=== PATIENT | male | born 1965 | race African-American/Black ===

== ENCOUNTER 2016-10-12 13:33 | Emergency (ER) | payer MEDICAID ==
[~2016-10-12] VITALS: Ht 177.8 cm; Wt 71.7 kg
[~2016-10-12 13:33] MED LIST: ABAC1TAB3 PO; DOLU50TA PO; HYDR-548 PO; MAGN400C PO
[2016-10-12] MEDS ORDERED: KETOROLAC TROMETHAMINE 30 MG INJ IVP ONE (13:45)
[2016-10-12 13:59] LABS: *BILIRUBIN,URIN NEGATIVE (NEGATIVE); *BLOOD, URINE 3+ (NEGATIVE); *CLARITY,URINE SLIGHTLY CLOUDY (CLEAR); *COLOR,URINE AMBER (YELLOW); *KETONES,URINE 1+ (NEGATIVE); *UROBILINOGEN,URINE 0.2 E.U./dl (NORMAL); LEUKOCYTE ESTERASE ,URINE 1+ (NEGATIVE); NITRITE, URINE NEGATIVE (NEGATIVE); UGLUCOSE NEGATIVE (NEGATIVE)
[2016-10-12 14:00] LABS: *PROTEIN,URINE 3+ (NEGATIVE)
[2016-10-12] MEDS ORDERED: HYDROMORPHONE 1 MG/1 ML DISP.SYRIN IV ONE (14:00)
[2016-10-12] MEDS ORDERED: HYDROMORPHONE 1 MG/1 ML DISP.SYRIN ONE (14:03)
[2016-10-12] MEDS ORDERED: KETOROLAC TROMETHAMINE 30 MG INJ ONE (14:03)
--- NOTE | 2016-10-12 14:20 | NUR ---
Patient is resting comfortably on gurney while using his cellphone, NAD, decreased pains expressed.
[2016-10-12 14:25] LABS: BACTERIA,URINE MODERATE /HPF (NONE SEEN); RBC,URINE TNTC /HPF (0-3); SQUAMOUS EPITHELIAL CELL,UR FEW /HPF (NONE SEEN)
[2016-10-12 14:30] LABS: CALCIUM 9.1 mg/dL (8.5-10.1); CREATININE 1.2 mg/dL (0.6-1.3); POTASSIUM 3.5 mmol/L (3.5-5.1)
[2016-10-12] MEDS ORDERED: CEFTRIAXONE 1 G in IV DEXTROSE 5% 50 ML IV ONE (14:45)
[2016-10-12] MEDS ORDERED: HEPARIN SODIUM,PORCINE/PF 100 UNIT/ML, 5ML SYR ONE (14:52)
[2016-10-12] MEDS ORDERED: CEFTRIAXONE 1 G VIAL ONE (14:52)
--- NOTE | 2016-10-12 15:22 | NUR ---
Patient discharged to home in stable conditon. Written and verbal after care instructions given to patient. Patient verbalizes understanding of instructions.
[2016-10-12] MEDS ORDERED: HEPARIN SODIUM,PORCINE/PF 100 UNIT/ML, 5ML SYR XX ONE (15:30)
== END 2016-10-12 15:25 | disposition home or self-care (01) ==
LOC: ER 13:36
DX: N39.0 Urinary tract infection, site not specified (principal); N20.0 Calculus of kidney; F19.10 Other psychoactive substance abuse, uncomplicated; F17.200 Nicotine dependence, unspecified, uncomplicated; Z88.1 Allergy status to other antibiotic agents; Z86.718 Personal history of other venous thrombosis and embolism; Z87.442 Personal history of urinary calculi
CPT/HCPCS: 36415; 80048; 81001; 87086; 96365; 96375; 99284; A4663; J0696; J1170; J1642; J1885

== ENCOUNTER 2016-11-19 04:29 | Emergency (ER) | payer MEDICAID, OTHER ==
[~2016-11-19] VITALS: Ht 177.8 cm; Wt 70.3 kg
[~2016-11-19 04:29] MED LIST changes: -MAGN400C PO
[2016-11-19] MEDS ORDERED: ONDANSETRON 4 MG/2 ML VIAL IV ONE (05:00)
[2016-11-19] MEDS ORDERED: IV NORMAL SALINE 1000 ML BAG IV ONE (05:00)
[2016-11-19] MEDS ORDERED: LORAZEPAM 2 MG/1 ML VIAL IV ONE (05:00)
--- NOTE | 2016-11-19 05:15 | NUR ---
PT HAS A PORT A CATH IN RT SUBCLAVIAN , ACCESSED ASEPTICALLY WITH 19G BOWERS NEEDLE.BLOOD DRAWN FOR THE LAB, MEDS GIVEN ORDERED.
[2016-11-19] MEDS ORDERED: LORAZEPAM 2 MG/1 ML VIAL ONE (05:24)
[2016-11-19] MEDS ORDERED: ONDANSETRON 4 MG/2 ML VIAL ONE (05:24)
[2016-11-19 05:29] LABS: BASOPHILS % (AUTO) 0.2 % (0.0-2.0); EOSINOPHILS # (AUTO) 0.1 K/uL (0.0-0.7); EOSINOPHILS % (AUTO) 1.1 % (0.0-7.0); HEMATOCRIT 41.6 % (36.7-47.1); HEMOGLOBIN 13.8 g/dL (12.5-16.3); LYMPHOCYTES # (AUTO) 0.7 K/uL (20.0-40.0); LYMPHOCYTES % (AUTO) 9.8 % (20.5-51.5); MEAN CORPUSCULAR HEMOGLOBIN 29.8 uug (23.8-33.4); MEAN CORPUSCULAR HGB CONC 33 g/dL (32.5-36.3); MEAN CORPUSCULAR VOLUME 89.8 fL (73.0-96.2); MONOCYTES # (AUTO) 0.5 K/uL (2.0-10.0); MONOCYTES % (AUTO) 7.5 % (0.0-11.0); NEUTROPHILS # (AUTO) 5.4 K/uL (1.8-8.9); NEUTROPHILS % (AUTO) 81.4 % (38.5-71.5); PLATELET COUNT (AUTO) 137 K/uL (152-348); RED BLOOD CELL COUNT(AUTO) 4.63 MIL/uL (4.06-5.63); RED CELL DISTRIBUTION WIDTH 15.8 % (12.1-16.2); WHITE BLOOD COUNT (AUTO) 6.7 K/uL (3.6-10.2)
[2016-11-19 05:31] LABS: ETHANOL < 3 MG/DL (0-0)
[2016-11-19 05:35] LABS: ALBUMIN 3.9 g/dL (3.4-5.0); BILIRUBIN,DIRECT 0.1 mg/dL (0.0-0.2); BILIRUBIN,TOTAL 0.5 mg/dL (0.2-1.0); CREATININE 1.1 mg/dL (0.6-1.3); POTASSIUM 3.5 mmol/L (3.5-5.1); TOTAL PROTEIN, SERUM 7.9 g/dL (6.4-8.2)
--- NOTE | 2016-11-19 07:26 | NUR ---
Patient is resting comfortably in bed with eyes closed, nad noted.
--- NOTE | 2016-11-19 07:40 | NUR ---
port a cath access removed per md order.
[2016-11-19 07:41] VITALS: BP 115/88
--- NOTE | 2016-11-19 07:42 | NUR ---
Patient discharged to home in stable conditon. Written and verbal after care instructions given. Patient verbalizes understanding of instructions.
[2016-11-23] MEDS ORDERED: Docusate Sodium PO (12:23)
[2016-11-23] MEDS ORDERED: PROM25TA15 PO (12:23)
[2016-11-23] MEDS ORDERED: AMPI500C11 PO (12:23)
== END 2016-11-19 07:44 | disposition home or self-care (01) ==
LOC: ER 04:33
DX: F41.9 Anxiety disorder, unspecified (principal); R10.13 Epigastric pain; R11.10 Vomiting, unspecified
CPT/HCPCS: 36415; 71010; 74176; 80048; 80076; 83690; 85025; 93005; 96361; 96374; 96375; 99285; A4663; G0482; J2060; J2405; J7030; G6040-TC

== ENCOUNTER 2016-11-21 11:26 | Inpatient (IN) | payer OTHER ==
[~2016-11-21] VITALS: Ht 177.8 cm; Wt 70.3 kg
--- NOTE | 2016-11-21 12:02 | NUR ---
right chest PORT catheter was accessed aseptically. Blood and urine sent to lab, pending CT, endorsed to MATTHEW Willis accordingly.
[2016-11-21 12:05] LABS: BASOPHILS % (AUTO) 0.6 % (0.0-2.0); EOSINOPHILS % (AUTO) 0.4 % (0.0-7.0); HEMATOCRIT 39.5 % (40-50); HEMOGLOBIN 13.1 G/DL (14.0-18.0); LYMPHOCYTES # (AUTO) 1.3 K/uL (20.0-40.0); LYMPHOCYTES % (AUTO) 23.7 % (20.5-51.5); MEAN CORPUSCULAR HGB CONC 33 g/dL (32.0-37.0); MEAN CORPUSCULAR VOLUME 90.7 FL (82.0-92.0); MONOCYTES # (AUTO) 0.5 K/uL (2.0-10.0); MONOCYTES % (AUTO) 8.8 % (0.0-11.0); NEUTROPHILS # (AUTO) 3.8 K/uL (1.8-8.9); NEUTROPHILS % (AUTO) 66.5 % (38.5-71.5); PLATELET COUNT (AUTO) 129 K/UL (150-450); RED BLOOD CELL COUNT(AUTO) 4.36 MIL/UL (4.7-6.1); WHITE BLOOD COUNT (AUTO) 5.6 K/UL (4.0-11.2)
[2016-11-21 12:06] LABS: *BILIRUBIN,URIN NEGATIVE (NEGATIVE); *BLOOD, URINE 3+ (NEGATIVE); *CLARITY,URINE SLIGHTLY CLOUDY (CLEAR); *COLOR,URINE YELLOW (YELLOW); *KETONES,URINE 1+ (NEGATIVE); *PROTEIN,URINE 2+ (NEGATIVE); *UROBILINOGEN,URINE 0.2 E.U./dl (NORMAL); LEUKOCYTE ESTERASE ,URINE 1+ (NEGATIVE); PH,URINE 8.5 (5.0-8.0); UGLUCOSE NEGATIVE (NEGATIVE)
[2016-11-21 12:10] LABS: NITRITE, URINE POSITIVE (NEGATIVE)
[2016-11-21 12:10] LABS: CALCIUM 8.9 mg/dL (8.5-10.1); CREATININE 1.2 mg/dL (0.6-1.3); POTASSIUM 3.5 mmol/L (3.5-5.1)
[2016-11-21 12:16] LABS: ALBUMIN 3.8 g/dL (3.4-5.0); BILIRUBIN,DIRECT 0.1 mg/dL (0.0-0.2); BILIRUBIN,TOTAL 0.6 mg/dL (0.2-1.0); TOTAL PROTEIN, SERUM 7.7 g/dL (6.4-8.2)
[2016-11-21 12:24] LABS: RBC,URINE 80-100 /HPF (0-3)
[2016-11-21 12:25] LABS: BACTERIA,URINE FEW /HPF (NONE SEEN); SQUAMOUS EPITHELIAL CELL,UR FEW /HPF (NONE SEEN)
--- NOTE | 2016-11-21 13:19 | NUR ---
Right now, patient is resting comfortably on gurney while watching TV with occassional soft moaning heard from the patient 2/2 to MD jakob notified.
[2016-11-21] MEDS ORDERED: HYDROMORPHONE 1 MG/1 ML DISP.SYRIN IV ONE ×2 (13:30→19:15)
[2016-11-21] MEDS ORDERED: LEVOFLOXACIN 750MG/D5W 150 ML IV ONE ×2 (13:30→13:44)
[2016-11-21] MEDS ORDERED: ONDANSETRON 4 MG/2 ML VIAL IV ONE ×2 (13:30→20:45)
[2016-11-21] MEDS ORDERED: ONDANSETRON 4 MG/2 ML VIAL ONE (13:44)
[2016-11-21] MEDS ORDERED: HYDROMORPHONE 1 MG/1 ML DISP.SYRIN ONE ×2 (13:44→19:25)
--- NOTE | 2016-11-21 15:31 | NUR ---
Patient is still waiting for admission approval from [facility] insurance.
--- NOTE | 2016-11-21 16:03 | NUR ---
Summary report & facesheet were faxed by ER registration staffryne Garcia per instructions by ANNA miller [place] insurance.
--- NOTE | 2016-11-21 18:45 | NUR ---
Patient is eating vegetarian dinner tray with good appetite, still for transfer to a [facility] hospital at this time, no acute change in condition seen.
--- NOTE | 2016-11-21 19:27 | NUR ---
assumed care of patient from am shift GEETA Wang, patient is awake , alert, oriented x 4. All patient needs attended, pending transfer center call back for location of patient transfer facility.
--- NOTE | 2016-11-21 19:47 | NUR ---
Contacted [facility], Per Facility maintenance and custodian supervisor, patient has been accepted to the facility. Pending bed availability, awaiting call back from [facility] for room assignment.
--- NOTE | 2016-11-21 20:56 | NUR ---
Follow up call placed to [facility], No bed available at this moment for the patient.
--- NOTE | 2016-11-21 21:04 | NUR ---
Spoke with Miracle, Director Of Investigations. Patient approved for admission to [facility] due to inability to obtain bed at [facility]. Dr Nguyen aware, call placed to [facility] for Panel Call
--- NOTE | 2016-11-21 22:00 | NUR ---
RECEIVED PATIENT VIA W/C FROM ER. PATIENT IS A/O X4. DENIES PAIN UPON ARIVAL TO FLOOR. NO RESP. DISTRESS NOTED. VSS. JIAN-CATH NOTED TO RIGHT UPPER CHEST WALL, INTACT. ORIENTED PATIENT TO ROOM AND CALL LIGHT. CALL LIGHT IN REACH. ALL NEEDS ATTENDED. WILL CONTINUE TO MONITOR.
--- NOTE | 2016-11-21 22:06 | NUR ---
Pt. admitted to Med Surg , under care of Dr. Mcdonald. Dx: Infected left Kidney Stone w/ Hydronephrosis . Belongs List completed
[2016-11-21] MEDS ORDERED: ACETAMINOPHEN 325 MG TABLET PO PRN (22:15)
[2016-11-21] MEDS ORDERED: MAGNESIUM HYDROXIDE 30 ML LIQUID UDC PO PRN (22:15)
[2016-11-21] MEDS ORDERED: ZOLPIDEM 5 MG TABLET PO PRN (22:15)
[2016-11-21 22:16] VITALS: BP 146/89
[2016-11-21] MEDS: TAMSULOSIN HCL 0.4 MG CAP.SR.24H PO SCH (23:01)
[2016-11-21] MEDS: POTASSIUM CHLORIDE 20 MEQ in IV 1/2NS 1000 ML 1,000 ML IV PRN (23:01)
[2016-11-21] MEDS ORDERED: TAMSULOSIN HCL 0.4 MG CAP.SR.24H ONE (23:10)
[2016-11-22] MEDS ORDERED: HYDROMORPHONE 2 MG/1 ML DISP.SYRIN ONE (00:09)
[2016-11-22] MEDS: ONDANSETRON 4 MG/2 ML VIAL IV PRN ×3 (01:31→14:43)
[2016-11-22] MEDS ORDERED: ONDANSETRON 4 MG/2 ML VIAL ONE (01:33)
[2016-11-22] MEDS ORDERED: AMPICILLIN 1 G VIAL ONE (02:06)
[2016-11-22 06:00] VITALS: BP 114/84
[2016-11-22] MEDS: AMPICILLIN IV 1 G in IV NORMAL SALINE 50 ML IV SCH ×2 (06:05→14:42)
--- NOTE | 2016-11-22 06:23 | NUR ---
PATIENT AWAKE IN BED. IVF INFUSING WELL TO RIGHT UPPER CHEST JIAN-CATH. VSS. DENIES PAIN OR DISCOMFORT. NO RESP. DISTRESS NOTED. CALL LIGHT IN REACH. ALL NEEDS ATTENDED. WILL CONTINUE TO MONITOR.
[2016-11-22 06:53] LABS: BASOPHILS % (AUTO) 0.3 % (0.0-2.0); EOSINOPHILS % (AUTO) 0.8 % (0.0-7.0); HEMATOCRIT 38.2 % (40-50); HEMOGLOBIN 13.1 G/DL (14.0-18.0); LYMPHOCYTES % (AUTO) 26.4 % (20.5-51.5); MEAN CORPUSCULAR HEMOGLOBIN 30.8 UUG (27.0-31.0); MEAN CORPUSCULAR HGB CONC 34 g/dL (32.0-37.0); MEAN CORPUSCULAR VOLUME 90.3 FL (82.0-92.0); MONOCYTES # (AUTO) 0.5 K/uL (2.0-10.0); MONOCYTES % (AUTO) 11.7 % (0.0-11.0); NEUTROPHILS # (AUTO) 2.4 K/uL (1.8-8.9); NEUTROPHILS % (AUTO) 60.8 % (38.5-71.5); PLATELET COUNT (AUTO) 133 K/UL (150-450); RED BLOOD CELL COUNT(AUTO) 4.23 MIL/UL (4.7-6.1); RED CELL DISTRIBUTION WIDTH 15.4 % (11.5-14.5)
[2016-11-22 07:04] LABS: WHITE BLOOD COUNT (AUTO) 3.9 K/UL (4.0-11.2)
[2016-11-22 07:06] LABS: ALBUMIN 3.6 g/dL (3.4-5.0); BILIRUBIN,TOTAL 0.6 mg/dL (0.2-1.0); CALCIUM 8.5 mg/dL (8.5-10.1); CREATININE 1.1 mg/dL (0.6-1.3); MAGNESIUM 1.4 mg/dL (1.8-2.4); PHOSPHOROUS 3.8 mg/dL (2.5-4.9); POTASSIUM 3.6 mmol/L (3.5-5.1); TOTAL PROTEIN, SERUM 7.4 g/dL (6.4-8.2)
--- NOTE | 2016-11-22 07:30 | NUR ---
PT IS SLEEPING IN BED COMFORTABLY. NO S/S OF RESPIRATORY DISTRESS NOTED. PAIN IS REPORTED, WILL MEDICATE APPROPRIATELY. PORTACATH IS INTACT/PATENT. ALL SAFETY NEEDS ARE MET. WILL CONTINUE TO MONITOR.
[2016-11-22] MEDS: PANTOPRAZOLE SODIUM 40 MG TABLET.DR PO SCH (08:13)
[2016-11-22] MEDS: TAMSULOSIN HCL 0.4 MG CAP.SR.24H PO SCH ×2 (08:13→20:44)
[2016-11-22] MEDS: HYDROMORPHONE 1 MG/1 ML DISP.SYRIN IV PRN ×3 (08:13→18:14)
[2016-11-22] MEDS ORDERED: Medication Not On Formulary EA (Dolutegravir Sodium (Tivicay) 50 MG) PO SCH (09:00)
[2016-11-22] MEDS: ALPRAZOLAM 0.5 MG TABLET PO PRN ×2 (09:23→19:45)
[2016-11-22 11:07] VITALS: BP 134/86
[2016-11-22] MEDS ORDERED: VANCOMYCIN IV 1 G in PREMIXED 0 EACH IV SCH (11:15)
--- NOTE | 2016-11-22 11:20 | NUR ---
PHARMACY CLINICAL NOTES ( VANCOMYCIN DOSING) S: 50 YO male with diagnosis of infected left kindey stone, UTI, hydronephrosis on vanco and ampicillin O: bun/scr 9/1.1 , wbc 3.6, temp 98.4 A/P: will dose vanco as 1gm ivbp q12h , predicted peak 35 and trough 16 will ck the trough prior to 4th dose and re-adjust if necessary. will continue to monitor.
[2016-11-22] MEDS: POTASSIUM CHLORIDE 20 MEQ in IV 1/2NS 1000 ML 1,000 ML IV PRN (11:53)
[2016-11-22] MEDS ORDERED: ABAC1TAB3 PO (12:02)
[2016-11-22] MEDS ORDERED: PROMETHAZINE HCL INJ 12.5 MG in IV DEXTROSE 5% 50 ML IV PRN (12:15)
--- NOTE | 2016-11-22 12:16 | NUR ---
PHENERGAN 12.[address] PRN PER [address]. BOLES
[2016-11-22] MEDS: PATIENT MAY USE OWN MED- MD OK PO SCH ×2 (13:24)
[2016-11-22] MEDS: MAGNESIUM SULFATE/D5W 100 ML IV SCH ×4 (14:42→18:14)
[2016-11-22 15:21] VITALS: BP 112/78
--- NOTE | 2016-11-22 19:27 | NUR ---
NO CHANGES NOTED. ALL SAFETY NEEDS ARE MET.
--- NOTE | 2016-11-22 19:45 | NUR ---
RECEIVED PATIENT AWAKE IN BED. PATIENT IS VERY ANXIOUS AND APPEARS TO BE HAVING AN "ANXIETY ATTACK." PATIENT GIVEN XANAX 0.5MG PO PRN ORDERED. PATIENT EDUCATED ON SLOW DEEP BREATHING AND RELAXATION TECHNIQUES. NO RESP. DISTRESS NOTED. NO C/O PAIN OR DISCOMFORT AT THIS TIME. JIAN-CATH NOTED TO RIGHT UPPER CHEST. VSS. CALL LIGHT IN REACH. ALL NEEDS ATTENDED. WILL CONTINUE TO MONITOR.
[2016-11-22 20:00] VITALS: BP 122/82
--- NOTE | 2016-11-22 20:00 | NUR ---
PATIENT IN BED, VOMITING. CALLED OUT TO DR. BOLES FOR FURTHER ORDERS. WILL CONTINUE TO MONITOR.
--- NOTE | 2016-11-22 20:25 | NUR ---
RECEIVED ORDER FOR XANAX TO BE DISCONTINUED AND NEW ORDER FOR PATIENT TO GET ATIVAN. ATIVAN 1MG IV PRN PER RN. WILL CONTINUE TO MONITOR.
[2016-11-22] MEDS: LORAZEPAM 2 MG/1 ML VIAL IV PRN (20:26)
[2016-11-22] MEDS ORDERED: LORAZEPAM 2 MG/1 ML VIAL ONE (20:31)
[2016-11-22] MEDS ORDERED: DOCUSATE SODIUM 250 MG CAPSULE PO SCH (21:00)
[2016-11-22] MEDS ORDERED: DOCUSATE SODIUM 100 MG CAPSULE PO SCH (21:00)
[2016-11-22] MEDS: PIPERACILLIN/TAZOBACTAM/D5W 3.375 G in PREMIXED 1 EACH IV SCH (21:39)
[2016-11-23] MEDS: ONDANSETRON 4 MG/2 ML VIAL IV PRN ×2 (00:25→08:23)
[2016-11-23] MEDS: HYDROMORPHONE 1 MG/1 ML DISP.SYRIN IV PRN ×2 (00:25→04:39)
[2016-11-23 05:30] VITALS: BP 115/82
[2016-11-23] MEDS: PIPERACILLIN/TAZOBACTAM/D5W 3.375 G in PREMIXED 1 EACH IV SCH ×2 (05:30→14:00)
[2016-11-23] MEDS: POTASSIUM CHLORIDE 20 MEQ in IV 1/2NS 1000 ML 1,000 ML IV PRN (05:30)
--- NOTE | 2016-11-23 06:15 | NUR ---
PATIENT AWAKE IN BED. VOMITING AND VERY ANXIOUS. ZOFRAN NOT DUE AT THIS TIME. PATIENT GIVEN ATIVAN 1MG IV PER RN. WILL CONTINUE TO MONITOR. VSS. ALL NEEDS ATTENDED.
[2016-11-23] MEDS: LORAZEPAM 2 MG/1 ML VIAL IV PRN ×2 (06:17→12:44)
[2016-11-23] MEDS ORDERED: LORAZEPAM 2 MG/1 ML VIAL ONE (06:18)
--- NOTE | 2016-11-23 06:32 | NUR ---
PATIENT ASLEEP IN BED. ATIVAN EFFECTIVE. UNABLE TO GIVE PROTONIX PO AT THIS TIME. PATIENT WAS VERY NAUSEA AND VOMITING PRIOR TO RECEIVING ATIVAN IV. WILL ENDORSE TO AM SHIFT. ALL NEEDS ATTENDED. WILL CONTINUE TO MONITOR.
[2016-11-23] MEDS: PANTOPRAZOLE SODIUM 40 MG TABLET.DR PO SCH (06:37)
[2016-11-23 07:10] LABS: BASOPHILS % (AUTO) 0.1 % (0.0-2.0); EOSINOPHILS # (AUTO) 0.1 K/uL (0.0-0.7); EOSINOPHILS % (AUTO) 1.7 % (0.0-7.0); HEMOGLOBIN 12.9 G/DL (14.0-18.0); LYMPHOCYTES # (AUTO) 1.2 K/uL (20.0-40.0); LYMPHOCYTES % (AUTO) 29.6 % (20.5-51.5); MEAN CORPUSCULAR HEMOGLOBIN 31.4 UUG (27.0-31.0); MEAN CORPUSCULAR HGB CONC 34 g/dL (32.0-37.0); MONOCYTES # (AUTO) 0.6 K/uL (2.0-10.0); MONOCYTES % (AUTO) 13.6 % (0.0-11.0); NEUTROPHILS # (AUTO) 2.2 K/uL (1.8-8.9); PLATELET COUNT (AUTO) 128 K/UL (150-450); RED BLOOD CELL COUNT(AUTO) 4.12 MIL/UL (4.7-6.1); RED CELL DISTRIBUTION WIDTH 14.8 % (11.5-14.5); WHITE BLOOD COUNT (AUTO) 4.1 K/UL (4.0-11.2)
[2016-11-23 07:44] LABS: CALCIUM 8.4 mg/dL (8.5-10.1); CREATININE 1.3 mg/dL (0.6-1.3); MAGNESIUM 2.1 mg/dL (1.8-2.4); PHOSPHOROUS 4.2 mg/dL (2.5-4.9); POTASSIUM 3.6 mmol/L (3.5-5.1)
--- NOTE | 2016-11-23 07:49 | NUR ---
NO CHANGES NOTED. PT IS SLEEPING IN BED COMFORTABLY. ALL SAFETY NEEDS ARE MET.
[2016-11-23] MEDS: TAMSULOSIN HCL 0.4 MG CAP.SR.24H PO SCH (09:13)
[2016-11-23] MEDS: PATIENT MAY USE OWN MED- MD OK PO SCH ×2 (09:13)
[2016-11-23] MEDS ORDERED: PROCHLORPERAZINE EDISYLATE 10 MG/2 ML VIAL IV PRN (09:15)
[2016-11-23 11:57] VITALS: BP 111/71
[2016-11-23] MEDS ORDERED: AMPI500C11 PO (12:23)
[2016-11-23] MEDS ORDERED: Docusate Sodium PO (12:23)
[2016-11-23] MEDS ORDERED: PROM25TA15 PO (12:23)
--- NOTE | 2016-11-23 13:20 | NUR ---
DISCHARGE NOTE: NO S/S OF RESPIRATORY DISTRESS NOTED. NO PAIN REPORTED. NO DIZZINESS/NAUSEA REPORTED. OUTSIDE CATHETER IS REMOVED FROM PORTACATH. WRISTBAND IS REMOVED. PHARMACIST IS NOTIFIED THAT THE PT IS LEAVING WITH NEW PRESCRIPTIONS. EDUCTION/EXITCARE IS PROVIDED TO THE PT. PRESCRIPTION IS PROVIDED TO THE PT. PT LEFT WITH HIS FRIEND Shin/S AIDA.
== END 2016-11-23 13:30 | disposition home or self-care (01) | DRG 690 ==
LOC: ER 11:31 → MED 21:53
PROVIDERS: ADMIT Internal Medicine; ATTEND Internal Medicine
DX: N13.6 Pyonephrosis (principal); N20.2 Calculus of kidney with calculus of ureter; D63.0 Anemia in neoplastic disease; F12.90 Cannabis use, unspecified, uncomplicated; G89.3 Neoplasm related pain (acute) (chronic); F41.9 Anxiety disorder, unspecified; Z87.440 Personal history of urinary (tract) infections; Z86.718 Personal history of other venous thrombosis and embolism; Z79.899 Other long term (current) drug therapy; Z92.21 Personal history of antineoplastic chemotherapy; Z87.442 Personal history of urinary calculi; Z87.11 Personal history of peptic ulcer disease; Z85.79 Personal history of other malignant neoplasms of lymphoid, hematopoietic and related tissues; B95.7 Other staphylococcus as the cause of diseases classified elsewhere
CPT/HCPCS: 36415; 83605; 83690; 83735; 84100; 85025; 87040; 87077; 87086; J0290; J1170; J1956; J2060; J2405; J2543; J2550; J3370; J3475; J3480; J3490; J7060

== ENCOUNTER 2016-12-03 06:09 | Emergency (ER) | payer OTHER ==
[~2016-12-03] VITALS: Ht 177.8 cm; Wt 70.3 kg
[~2016-12-03 06:09] MED LIST changes: +AMPI500C11 PO; +Docusate Sodium PO; +PROM25TA15 PO
[2016-12-03] MEDS ORDERED: CLONAZEPAM 0.5 MG TABLET PO ONE (07:15)
[2016-12-03] MEDS ORDERED: PANTOPRAZOLE SODIUM 40 MG TABLET.DR PO ONE ×2 (07:15→07:24)
[2016-12-03] MEDS ORDERED: ONDANSETRON ODT 4 MG TAB.RAPDIS SL ONE (07:15)
--- NOTE | 2016-12-03 07:20 | NUR ---
pt is in room #2b. dr Gray evaluated the pt.
[2016-12-03] MEDS ORDERED: CLONAZEPAM 0.5 MG TABLET ONE (07:25)
[2016-12-03] MEDS ORDERED: ONDANSETRON ODT 4 MG TAB.RAPDIS ONE (07:25)
[2016-12-03 07:31] LABS: BASOPHILS % (AUTO) 0.2 % (0.0-2.0); EOSINOPHILS % (AUTO) 0.5 % (0.0-7.0); HEMATOCRIT 39.1 % (40-50); HEMOGLOBIN 13.4 G/DL (14.0-18.0); LYMPHOCYTES # (AUTO) 0.8 K/UL (0.8-4.8); LYMPHOCYTES % (AUTO) 16.7 % (20.5-51.5); MEAN CORPUSCULAR HEMOGLOBIN 30.8 UUG (27.0-31.0); MEAN CORPUSCULAR HGB CONC 34 g/dL (32.0-37.0); MEAN CORPUSCULAR VOLUME 89.6 FL (82.0-92.0); MONOCYTES # (AUTO) 0.4 K/UL (0.1-1.30); MONOCYTES % (AUTO) 8.2 % (0.0-11.0); NEUTROPHILS # (AUTO) 3.7 K/UL (1.8-8.9); NEUTROPHILS % (AUTO) 74.4 % (38.5-71.5); PLATELET COUNT (AUTO) 166 K/UL (150-450); RED BLOOD CELL COUNT(AUTO) 4.37 MIL/UL (4.7-6.1); RED CELL DISTRIBUTION WIDTH 15.6 % (11.5-14.5); WHITE BLOOD COUNT (AUTO) 4.9 K/UL (4.0-11.2)
[2016-12-03 07:39] LABS: CALCIUM 8.9 mg/dL (8.5-10.1); CREATININE 1.1 mg/dL (0.6-1.3); POTASSIUM 3.8 mmol/L (3.5-5.1)
--- NOTE | 2016-12-03 08:09 | NUR ---
pt as d/c to home.. d/c instructions given to the pt.
[2016-12-03 08:10] VITALS: BP 136/78
== END 2016-12-03 08:11 | disposition home or self-care (01) ==
LOC: ER 06:18
DX: F41.9 Anxiety disorder, unspecified (principal); R11.2 Nausea with vomiting, unspecified; F12.10 Cannabis abuse, uncomplicated; F17.200 Nicotine dependence, unspecified, uncomplicated; Z88.8 Allergy status to other drugs, medicaments and biological substances
CPT/HCPCS: 36415; 70030-TC; 85025; 93005; A4663; J7030; Q0162

== ENCOUNTER 2017-04-23 02:23 | Emergency (ER) | payer OTHER ==
[~2017-04-23] VITALS: Ht 177.8 cm; Wt 72.6 kg
[2017-04-23 02:56] LABS: BASOPHILS # (AUTO) 0.1 K/uL (0.0-8.0); BASOPHILS % (AUTO) 1.1 % (0.0-2.0); EOSINOPHILS # (AUTO) 0.2 K/uL (0.0-0.7); EOSINOPHILS % (AUTO) 2.3 % (0.0-7.0); HEMATOCRIT 44.7 % (40-50); HEMOGLOBIN 15.2 G/DL (14.0-18.0); LYMPHOCYTES # (AUTO) 1.7 K/UL (0.8-4.8); MEAN CORPUSCULAR HEMOGLOBIN 30.4 UUG (27.0-31.0); MEAN CORPUSCULAR HGB CONC 34 g/dL (32.0-37.0); MEAN CORPUSCULAR VOLUME 89.3 FL (82.0-92.0); MONOCYTES # (AUTO) 0.5 K/UL (0.1-1.30); MONOCYTES % (AUTO) 7.6 % (0.0-11.0); NEUTROPHILS # (AUTO) 4.1 K/UL (1.8-8.9); PLATELET COUNT (AUTO) 141 K/UL (150-450); RED BLOOD CELL COUNT(AUTO) 5.01 MIL/UL (4.7-6.1); WHITE BLOOD COUNT (AUTO) 6.6 K/UL (4.0-11.2)
--- NOTE | 2017-04-23 02:57 | NUR ---
Pt ambulated to room with steady gait and changed into gown. Pt c/o severe right flank pain radiating into right side of abd with N/V since yesterday. Pt seen by Dr. Nuñez. IV established, labs drawn and sent, ua collected and sent. Pt medicated for pain and vomiting. Will monitor for effects of medications. Fluid bolus infusing freely to gravity. Pt resting in position of comfort for self.
[2017-04-23 02:59] LABS: *BILIRUBIN,URIN NEGATIVE (NEGATIVE); *BLOOD, URINE 3+ (NEGATIVE); *CLARITY,URINE CLOUDY (CLEAR); *COLOR,URINE YELLOW (YELLOW); *KETONES,URINE NEGATIVE (NEGATIVE); *PROTEIN,URINE 2+ (NEGATIVE); *UROBILINOGEN,URINE 0.2 E.U./dl (NORMAL); LEUKOCYTE ESTERASE ,URINE 1+ (NEGATIVE); NITRITE, URINE POSITIVE (NEGATIVE); UGLUCOSE NEGATIVE (NEGATIVE)
[2017-04-23 03:01] LABS: CREATININE 1.3 mg/dL (0.6-1.3); POTASSIUM 3.5 mmol/L (3.5-5.1)
[2017-04-23 03:06] LABS: BILIRUBIN,DIRECT 0.1 mg/dL (0.0-0.2); BILIRUBIN,TOTAL 0.4 mg/dL (0.2-1.0); TOTAL PROTEIN, SERUM 8.8 g/dL (6.4-8.2)
--- NOTE | 2017-04-23 03:14 | NUR ---
pt to radiology via tania
[2017-04-23 03:18] LABS: BACTERIA,URINE MODERATE /HPF (NONE SEEN); RBC,URINE 80-100 /HPF (0-3); SQUAMOUS EPITHELIAL CELL,UR FEW /HPF (NONE SEEN)
--- NOTE | 2017-04-23 03:40 | NUR ---
Pt returned from radiology via gurney. Pt sts pain improved with medication. Pt no longer vomiting. Pt repositioned for comfort.
--- NOTE | 2017-04-23 04:32 | NUR ---
Pt c/o pain increasing. Dr. Nuñez notified and verbal order for toradol 30mg IVP given. Pt medicated, will monitor for effects of medication.
--- NOTE | 2017-04-23 05:44 | NUR ---
Pt sts he is pain free from the previous medication. Pt resting in position of comfort for self, no complaints at this time.
--- NOTE | 2017-04-23 06:54 | NUR ---
Pt stable for discharge per Dr. Nuñez. IV dc'd, catheter intact, drsg applied. No problems noted to site. Pt given ACI. Pt verbalized understanding of dc instructions. Pt ambulated out of ER with a steady gait and ride home.
[2017-04-23 07:14] VITALS: BP 112/84
== END 2017-04-23 06:58 | disposition home or self-care (01) ==
LOC: ER 02:26
DX: N20.0 Calculus of kidney (principal); Z87.442 Personal history of urinary calculi; D64.9 Anemia, unspecified; F17.200 Nicotine dependence, unspecified, uncomplicated; Z86.718 Personal history of other venous thrombosis and embolism; K59.00 Constipation, unspecified
CPT/HCPCS: 36415; 70030-TC; 71010; 83690; 85025; 85730; 93005; A4663; J1170; J1885; J2405

== ENCOUNTER 2017-04-24 07:42 | Emergency (ER) | payer OTHER ==
[~2017-04-24] VITALS: Ht 177.8 cm; Wt 72.6 kg
--- NOTE | 2017-04-24 07:46 | NUR ---
As soon as patient came to ER bed 5A, patient immediately groans and moans loudly, retching but no actual vomiting seen, skin warm and dry, respiration:easy
--- NOTE | 2017-04-24 07:56 | NUR ---
Dr Morales is at bedside evaluating patient, pending MD orders
--- NOTE | 2017-04-24 08:06 | NUR ---
Patient is seen talking on his cellphone, calm, no retching seen, comfort and safety measures maintained
--- NOTE | 2017-04-24 09:04 | NUR ---
Patient is resting comfortably in bed with eyes open, NAD. No vomiting seen or retching noted since 0837
--- NOTE | 2017-04-24 09:33 | NUR ---
Patient says that he is using "uber" for a ride. Patient discharged to home in stable conditon. Written and verbal after care instructions given to patient. Patient verbalizes understanding of instructions. Patient also said that his pains have remarkedly decreased after the dilaudid shots.
== END 2017-04-24 09:42 | disposition home or self-care (01) ==
LOC: ER 07:42
DX: N20.0 Calculus of kidney (principal); F17.200 Nicotine dependence, unspecified, uncomplicated
CPT/HCPCS: A4663; J1170; J2405

== ENCOUNTER 2017-04-26 08:58 | Emergency (ER) | payer OTHER ==
[~2017-04-26] VITALS: Ht 177.8 cm; Wt 72.6 kg
[2017-04-26 09:47] LABS: *BILIRUBIN,URIN NEGATIVE (NEGATIVE); *BLOOD, URINE 3+ (NEGATIVE); *CLARITY,URINE TURBID (CLEAR); *COLOR,URINE DARK YELLOW (YELLOW); *KETONES,URINE NEGATIVE (NEGATIVE); *PROTEIN,URINE 2+ (NEGATIVE); *UROBILINOGEN,URINE 0.2 E.U./dl (NORMAL); LEUKOCYTE ESTERASE ,URINE 1+ (NEGATIVE); NITRITE, URINE POSITIVE (NEGATIVE); UGLUCOSE NEGATIVE (NEGATIVE)
--- NOTE | 2017-04-26 09:54 | NUR ---
PT CO ANXIETY ATTCK. NOTIFIED
[2017-04-26 09:57] LABS: BASOPHILS % (AUTO) 0.4 % (0.0-2.0); EOSINOPHILS # (AUTO) 0.1 K/uL (0.0-0.7); EOSINOPHILS % (AUTO) 1.4 % (0.0-7.0); HEMATOCRIT 36.4 % (40-50); HEMOGLOBIN 12.1 G/DL (14.0-18.0); LYMPHOCYTES # (AUTO) 0.6 K/UL (0.8-4.8); LYMPHOCYTES % (AUTO) 10.2 % (20.5-51.5); MEAN CORPUSCULAR HEMOGLOBIN 29.8 UUG (27.0-31.0); MEAN CORPUSCULAR HGB CONC 33 g/dL (32.0-37.0); MEAN CORPUSCULAR VOLUME 89.9 FL (82.0-92.0); MONOCYTES # (AUTO) 0.7 K/UL (0.1-1.30); MONOCYTES % (AUTO) 10.7 % (0.0-11.0); NEUTROPHILS # (AUTO) 4.9 K/UL (1.8-8.9); NEUTROPHILS % (AUTO) 77.3 % (38.5-71.5); PLATELET COUNT (AUTO) 139 K/UL (150-450); RED BLOOD CELL COUNT(AUTO) 4.04 MIL/UL (4.7-6.1); WHITE BLOOD COUNT (AUTO) 6.3 K/UL (4.0-11.2)
[2017-04-26 10:09] LABS: RBC,URINE TNTC /HPF (0-3); WBC,URINE 80-100 /HPF (0-3)
[2017-04-26 10:10] LABS: BACTERIA,URINE FEW /HPF (NONE SEEN); SQUAMOUS EPITHELIAL CELL,UR FEW /HPF (NONE SEEN)
[2017-04-26] MEDS ORDERED: EMTR1TAB14 PO (10:23)
--- NOTE | 2017-04-26 10:35 | NUR ---
DR. SCHAFFER TALKING TO DAVID JACKSON
[2017-04-26 10:46] LABS: BILIRUBIN,DIRECT 0.2 mg/dL (0.0-0.2); BILIRUBIN,TOTAL 0.6 mg/dL (0.2-1.0); CREATININE 1.4 mg/dL (0.6-1.3); TOTAL PROTEIN, SERUM 7.5 g/dL (6.4-8.2)
[2017-04-26 10:50] LABS: POTASSIUM 3.6 mmol/L (3.5-5.1)
[2017-04-26 13:31] LABS: EOSINOPHILS % (MANUAL) 2 % (0-8); LYMPHOCYTES % (MANUAL) 9 % (20-40); MONOCYTES % (MANUAL) 8 % (2-10); NEUTROPHILS % (MANUAL) 81 % (42-75)
--- NOTE | 2017-04-26 13:32 | NUR ---
Patient discharged to home in stable conditon. Written and verbal after care instructions given. Patient verbalizes understanding of instructions.PT WALKS IN STEADY GAIT. PT SAYS FEELS BETTER.
[2017-04-26 13:33] VITALS: BP 121/88
== END 2017-04-26 13:34 | disposition other institution (70) ==
LOC: ER 08:58
DX: N13.6 Pyonephrosis (principal); F17.200 Nicotine dependence, unspecified, uncomplicated
CPT/HCPCS: 36415; 83605; 83690; 85025; 87040; 87086; A4663; J0290; J0696; J1630; J1885; J2001; J2250; J2270; J3490; J7030; J7050; J7060; Q9967

== ENCOUNTER 2018-12-08 12:57 | Emergency (ER) | payer OTHER ==
[~2018-12-08] VITALS: Ht 177.8 cm; Wt 72.6 kg
[~2018-12-08 12:57] MED LIST changes: -ABAC1TAB3 PO; -AMPI500C11 PO; -DOLU50TA PO; -Docusate Sodium PO; +EMTR1TAB14 PO; +HYDR-4354 PO; -HYDR-548 PO; -PROM25TA15 PO
[2018-12-08] MEDS ORDERED: KETOROLAC TROMETHAMINE 30 MG INJ IM ONE (13:15)
[2018-12-08 13:26] LABS: *BILIRUBIN,URIN NEGATIVE (NEGATIVE); *CLARITY,URINE CLEAR (CLEAR); *COLOR,URINE YELLOW (YELLOW); *KETONES,URINE NEGATIVE (NEGATIVE); *UROBILINOGEN,URINE 0.2 E.U./dl (NORMAL); LEUKOCYTE ESTERASE ,URINE NEGATIVE (NEGATIVE); NITRITE, URINE NEGATIVE (NEGATIVE); PH,URINE 7.5 (5.0-8.0); UGLUCOSE NEGATIVE (NEGATIVE)
[2018-12-08] MEDS ORDERED: KETOROLAC TROMETHAMINE 30 MG INJ ONE (13:26)
[2018-12-08 13:27] LABS: BASOPHILS % (AUTO) 0.9 % (0.0-2.0); EOSINOPHILS # (AUTO) 0.1 K/uL (0.0-0.7); HEMATOCRIT 45.9 % (36.7-47.1); HEMOGLOBIN 15.5 g/dL (12.5-16.3); LYMPHOCYTES # (AUTO) 1.3 K/uL (20.0-40.0); LYMPHOCYTES % (AUTO) 33.4 % (20.5-51.5); MEAN CORPUSCULAR HGB CONC 34 g/dL (32.5-36.3); MEAN CORPUSCULAR VOLUME 91.3 fL (73.0-96.2); MONOCYTES # (AUTO) 0.4 K/uL (2.0-10.0); MONOCYTES % (AUTO) 10.7 % (0.0-11.0); PLATELET COUNT (AUTO) 99 K/uL (152-348); RED BLOOD CELL COUNT(AUTO) 5.02 MIL/uL (4.06-5.63); WHITE BLOOD COUNT (AUTO) 3.9 K/uL (3.6-10.2)
[2018-12-08 13:34] LABS: CREATININE 1.2 mg/dL (0.6-1.3); POTASSIUM 3.5 mmol/L (3.5-5.1)
[2018-12-08 13:37] LABS: *BLOOD, URINE NEGATIVE (NEGATIVE)
[2018-12-08 13:39] LABS: BACTERIA,URINE FEW /HPF (NONE SEEN); RBC,URINE NONE SEEN /HPF (0-3); SQUAMOUS EPITHELIAL CELL,UR FEW /HPF (NONE SEEN)
[2018-12-08 13:41] LABS: BILIRUBIN,DIRECT 0.1 mg/dL (0.0-0.2); BILIRUBIN,TOTAL 0.5 mg/dL (0.2-1.0); TOTAL PROTEIN, SERUM 7.3 g/dL (6.4-8.2)
--- NOTE | 2018-12-08 14:06 | NUR ---
PT TAKEN TO RADIOLOGY FOR CT SCAN.
--- NOTE | 2018-12-08 14:14 | NUR ---
PT BACK IN ER FROM RADIOLOGY.
--- NOTE | 2018-12-08 14:20 | NUR ---
PT REPORTS ONSET OF ANXIETY. ER MD NOTIFIED. AWAITING ORDERS.
[2018-12-08] MEDS ORDERED: ONDANSETRON 4 MG/2 ML VIAL IV ONE (14:30)
[2018-12-08] MEDS ORDERED: IV NORMAL SALINE 1000 ML BAG IV ONE (14:30)
[2018-12-08] MEDS ORDERED: ONDANSETRON 4 MG/2 ML VIAL ONE (14:36)
[2018-12-08] MEDS ORDERED: LORAZEPAM 2 MG/1 ML VIAL ONE (14:57)
[2018-12-08] MEDS ORDERED: LORAZEPAM 2 MG/1 ML VIAL IV ONE (15:00)
--- NOTE | 2018-12-08 15:20 | NUR ---
Patient discharged to home in stable conditon. Written and verbal after care instructions given. Patient verbalizes understanding of instructions. ALL BELONGINGS W/ PT. PT SELF-AMBULATED W/O DIFFICULTY. 22G IV ACCESS IN L WRIST REMOVED PRIOR TO D/C - INNER CANNULA INTACT.
[2018-12-08 15:22] VITALS: BP 133/88
--- NOTE | 2018-12-08 15:22 | NUR ---
PT REPORTS HE WILL TAKE THE TAXI HOME.
[2019-02-03] MEDS ORDERED: TAMS-3 PO (09:02)
[2019-02-03] MEDS ORDERED: CEPH-570 PO (09:02)
== END 2018-12-08 15:36 | disposition home or self-care (01) ==
LOC: ER 13:01
DX: N20.0 Calculus of kidney (principal); R11.2 Nausea with vomiting, unspecified; F12.10 Cannabis abuse, uncomplicated; F17.200 Nicotine dependence, unspecified, uncomplicated; Z90.89 Acquired absence of other organs; Z88.8 Allergy status to other drugs, medicaments and biological substances; Z79.899 Other long term (current) drug therapy
CPT/HCPCS: 36415; 74176; 80048; 80076; 81001; 83690; 85025; 96361; 96372; 96374; 96375; 99284; J1885; J2060; J2405; A4663; J7030

== ENCOUNTER 2018-12-18 03:50 | Emergency (ER) | payer OTHER ==
[~2018-12-18] VITALS: Ht 177.8 cm; Wt 77.1 kg
[2018-12-18] MEDS ORDERED: IBU 600 MG TABLET (04:06)
[2018-12-18] MEDS ORDERED: TAMSULOSIN HCL 0.4 MG CAPSULE (04:06)
[2018-12-18] MEDS ORDERED: ESCITALOPRAM OXALATE 5 MG (04:06)
[2018-12-18] MEDS ORDERED: HYDROCODONE-ACETAMIN 5-325 MG (04:06)
[2018-12-18] MEDS ORDERED: ESCI5TAB PO (04:07)
--- NOTE | 2018-12-18 04:13 | NUR ---
Dr. Hong at bedside for MSE.
[2018-12-18] MEDS ORDERED: LORAZEPAM 0.5 MG TABLET PO ONE (04:15)
[2018-12-18] MEDS ORDERED: KETOROLAC TROMETHAMINE 30 MG INJ IM ONE (04:15)
[2018-12-18] MEDS ORDERED: KETOROLAC TROMETHAMINE 30 MG INJ ONE (04:24)
[2018-12-18] MEDS ORDERED: LORAZEPAM 0.5 MG TABLET ONE (04:25)
[2018-12-18] MEDS ORDERED: ONDANSETRON 4 MG/2 ML VIAL IM ONE (04:30)
--- NOTE | 2018-12-18 04:30 | NUR ---
Ultrasound at bedside
[2018-12-18] MEDS ORDERED: ONDANSETRON 4 MG/2 ML VIAL ONE ×2 (04:31→05:14)
[2018-12-18 04:34] LABS: *BILIRUBIN,URIN NEGATIVE (NEGATIVE); *CLARITY,URINE CLEAR (CLEAR); *COLOR,URINE YELLOW (YELLOW); *KETONES,URINE NEGATIVE (NEGATIVE); *UROBILINOGEN,URINE 0.2 E.U./dl (NORMAL); LEUKOCYTE ESTERASE ,URINE NEGATIVE (NEGATIVE); NITRITE, URINE NEGATIVE (NEGATIVE); UGLUCOSE NEGATIVE (NEGATIVE)
[2018-12-18 04:49] LABS: *BLOOD, URINE TRACE (NEGATIVE)
[2018-12-18 04:52] LABS: BACTERIA,URINE FEW /HPF (NONE SEEN); MUCUS,URINE FEW /LPF (0-FEW); SQUAMOUS EPITHELIAL CELL,UR FEW /HPF (NONE SEEN)
[2018-12-18] MEDS ORDERED: HYDROMORPHONE 1 MG/1 ML DISP.SYRIN IV ONE (05:00)
[2018-12-18] MEDS ORDERED: ONDANSETRON IV *ER 4 MG/2 ML VIAL IV ONE (05:00)
[2018-12-18] MEDS ORDERED: HYDROMORPHONE 1 MG/1 ML DISP.SYRIN ONE (05:14)
--- NOTE | 2018-12-18 06:01 | NUR ---
Patient discharged to home in stable conditon. Written and verbal after care instructions given. Patient verbalizes understanding of instructions. Pt ambulated out of ER with steady gait, no acute signs of distress, VSS, all belongings taken, IV site discontinued.
[2018-12-18 06:03] VITALS: BP 135/85
== END 2018-12-18 06:03 | disposition home or self-care (01) ==
LOC: ER 03:55
DX: N20.0 Calculus of kidney (principal); G89.29 Other chronic pain; R10.9 Unspecified abdominal pain; F17.200 Nicotine dependence, unspecified, uncomplicated; Z90.89 Acquired absence of other organs; F12.10 Cannabis abuse, uncomplicated; Z88.8 Allergy status to other drugs, medicaments and biological substances; Z79.899 Other long term (current) drug therapy
CPT/HCPCS: 76775; 81000; 81001; 87086; 96372 ×2; 96374; 96375; 99284; J1170; J1885; J2405 ×2; A4663

== ENCOUNTER 2019-02-02 06:13 | Inpatient (IN) | payer OTHER ==
[~2019-02-02] VITALS: Ht 177.8 cm; Wt 72.6 kg
[~2019-02-02 06:13] MED LIST changes: -EMTR1TAB14 PO; +ESCI5TAB PO; +ESCITALOPRAM OXALATE 5 MG; +HYDROCODONE-ACETAMIN 5-325 MG; +IBU 600 MG TABLET; +TAMSULOSIN HCL 0.4 MG CAPSULE
--- NOTE | 2019-02-02 06:30 | NUR ---
Patient ambulated with stable gait. A/Ox4. Patient came for c/o left sided flank pain since 5pm yesterday and n/v. Pain 02/26. Respiratory even and unlabored, no cough no sob. No cardiovascular distress noted.
--- NOTE | 2019-02-02 06:42 | NUR ---
ERMD AT BEDSIDE FOR MSE
[2019-02-02] MEDS ORDERED: ONDANSETRON 4 MG/2 ML VIAL IV ONE ×2 (07:00→09:00)
[2019-02-02] MEDS ORDERED: IV NORMAL SALINE 1000 ML BAG IV ONE (07:00)
[2019-02-02] MEDS ORDERED: KETOROLAC TROMETHAMINE 15 MG INJ IV ONE (07:00)
[2019-02-02 07:12] LABS: BASOPHILS % (AUTO) 0.5 % (0.0-2.0); EOSINOPHILS # (AUTO) 0.1 K/uL (0.0-0.7); EOSINOPHILS % (AUTO) 1.7 % (0.0-7.0); HEMATOCRIT 46.3 % (36.7-47.1); HEMOGLOBIN 15.8 g/dL (12.5-16.3); LYMPHOCYTES # (AUTO) 1.2 K/uL (20.0-40.0); LYMPHOCYTES % (AUTO) 21.6 % (20.5-51.5); MEAN CORPUSCULAR HEMOGLOBIN 31.3 uug (23.8-33.4); MEAN CORPUSCULAR HGB CONC 34 g/dL (32.5-36.3); MEAN CORPUSCULAR VOLUME 91.5 fL (73.0-96.2); MONOCYTES # (AUTO) 0.7 K/uL (2.0-10.0); MONOCYTES % (AUTO) 11.5 % (0.0-11.0); NEUTROPHILS # (AUTO) 3.7 K/uL (1.8-8.9); NEUTROPHILS % (AUTO) 64.7 % (38.5-71.5); PLATELET COUNT (AUTO) 142 K/uL (152-348); RED BLOOD CELL COUNT(AUTO) 5.06 MIL/uL (4.06-5.63); WHITE BLOOD COUNT (AUTO) 5.7 K/uL (3.6-10.2)
[2019-02-02] MEDS ORDERED: ONDANSETRON 4 MG/2 ML VIAL ONE ×2 (07:13→09:04)
[2019-02-02] MEDS ORDERED: KETOROLAC TROMETHAMINE 15 MG INJ ONE ×2 (07:13→07:33)
--- NOTE | 2019-02-02 07:15 | NUR ---
Radiology called to contact US for renal ultrasound. Report given to GEETA Millan
[2019-02-02 07:21] LABS: CREATININE 1.9 mg/dL (0.6-1.3); POTASSIUM 4.2 mmol/L (3.5-5.1)
[2019-02-02 07:26] LABS: BILIRUBIN,DIRECT 0.2 mg/dL (0.0-0.2); BILIRUBIN,TOTAL 0.7 mg/dL (0.2-1.0); TOTAL PROTEIN, SERUM 8.1 g/dL (6.4-8.2)
[2019-02-02] MEDS ORDERED: KETOROLAC TROMETHAMINE 15 MG INJ IVP ONE (07:30)
[2019-02-02] MEDS ORDERED: MORPHINE SULFATE 4 MG/1 ML DISP.SYRIN ONE (07:39)
[2019-02-02] MEDS ORDERED: MORPHINE SULFATE 4 MG/1 ML DISP.SYRIN IV ONE (07:45)
[2019-02-02] MEDS ORDERED: PROMETHAZINE HCL INJ 12.5 MG in IV DEXTROSE 5% 50 ML IV STA (07:55)
[2019-02-02 07:56] LABS: *BILIRUBIN,URIN NEGATIVE (NEGATIVE); *BLOOD, URINE 2+ (NEGATIVE); *CLARITY,URINE CLEAR (CLEAR); *COLOR,URINE YELLOW (YELLOW); *KETONES,URINE NEGATIVE (NEGATIVE); *UROBILINOGEN,URINE 0.2 E.U./dl (NORMAL); LEUKOCYTE ESTERASE ,URINE TRACE (NEGATIVE); NITRITE, URINE NEGATIVE (NEGATIVE); PH,URINE 5.5 (5.0-8.0); UGLUCOSE NEGATIVE (NEGATIVE)
[2019-02-02 08:01] LABS: BACTERIA,URINE FEW /HPF (NONE SEEN); CALCIUM OXALATE CRYSTALS,UR FEW /HPF (NONE SEEN); SQUAMOUS EPITHELIAL CELL,UR FEW /HPF (NONE SEEN); WBC,URINE 50-80 /HPF (0-3)
[2019-02-02] MEDS ORDERED: CEFTRIAXONE 1 G in IV DEXTROSE 5% 50 ML IV ONE (08:45)
[2019-02-02] MEDS ORDERED: CEFTRIAXONE 1 G VIAL ONE (08:49)
--- NOTE | 2019-02-02 09:19 | NUR ---
DR JOHNSON TALKED TO DR PINTO, DISCUSSED PT's DIAGNOSIS. PT IS RESTING IN BED #2A COMFORTABLY. NOS/S OF ACUTE DISTRESS AT THIS TIME.
--- NOTE | 2019-02-02 10:13 | NUR ---
REPORT WAS GIVEN TO RN M/S. PT WAS TRANSFERED TO M/S ROOM #318.
--- NOTE | 2019-02-02 10:50 | NUR ---
PATIENT ARRIVED TO UNIT FORM ER. REPORT GIVEN BY GREGORIA JOHNSON ER NURSE. PATIENT DENIES PAIN OR DISCOMFORT AT THIS TIME. BED IN LOW POSITION AND LOCKED. CALL LIGHT IN REACH. WILL CONTINUE TO MONITOR.
[2019-02-02] MEDS ORDERED: ACETAMINOPHEN 325 MG TABLET PO PRN (12:00)
[2019-02-02] MEDS ORDERED: MAGNESIUM HYDROXIDE 30 ML LIQUID UDC PO PRN (12:00)
[2019-02-02] MEDS ORDERED: ZOLPIDEM 5 MG TABLET PO PRN (12:00)
[2019-02-02] MEDS ORDERED: HYDROCODONE/APAP 5-325MG TABLET PO PRN (12:00)
[2019-02-02] MEDS: IV NS 1000 ML 1,000 ML IV PRN (13:09)
[2019-02-02] MEDS: TAMSULOSIN HCL 0.4 MG CAP.SR.24H PO SCH ×2 (13:10→21:10)
[2019-02-02 15:19] VITALS: BP 107/79
[2019-02-02] MEDS: ONDANSETRON 4 MG/2 ML VIAL IV PRN (18:46)
[2019-02-02] MEDS: HYDROMORPHONE 1 MG/1 ML DISP.SYRIN IV PRN (18:47)
--- NOTE | 2019-02-02 19:00 | NUR ---
REPORT GIVEN TO ONCOMING NURSE. PATIENT IN STABLE CONDITION. ALL NEEDS MET AT THIS TIME.
[2019-02-02 20:00] VITALS: BP 114/78
[2019-02-02] MEDS ORDERED: [UNRECOGNIZED DRUG - OTHER] (20:49)
[2019-02-02] MEDS ORDERED: BICT1TAB PO (20:52)
--- NOTE | 2019-02-02 22:30 | NUR ---
Pt. resting in bed pleasant alert oriented x4. IV in R forearm 20 gauge patent, intact, running fluid. Pt. denies any SOB or difficulty breathing. Dr. Cuello spoke to pt. at bedside. Pt. to be NPO after midnight. Consent signed for cystoscopy, left JJ stent placement, fluoroscopy to be done on or Thursday. Straining urine with strainer so far urine is clear of any stones. Safety measures in place. Will continue to monitor.
[2019-02-03] MEDS: IV NS 1000 ML 1,000 ML IV PRN (01:35)
[2019-02-03] MEDS: ONDANSETRON 4 MG/2 ML VIAL IV PRN ×2 (01:49→10:26)
[2019-02-03] MEDS: HYDROMORPHONE 1 MG/1 ML DISP.SYRIN IV PRN ×2 (01:49→10:27)
[2019-02-03 05:05] VITALS: BP 128/84
[2019-02-03] MEDS ORDERED: METHYLENE BLUE 50 MG/10 ML AMPUL (0.5%) ONE (05:51)
[2019-02-03 06:28] LABS: BASOPHILS % (AUTO) 0.3 % (0.0-2.0); EOSINOPHILS # (AUTO) 0.1 K/uL (0.0-0.7); EOSINOPHILS % (AUTO) 3.1 % (0.0-7.0); HEMATOCRIT 42.3 % (36.7-47.1); LYMPHOCYTES # (AUTO) 1.6 K/uL (20.0-40.0); LYMPHOCYTES % (AUTO) 42.3 % (20.5-51.5); MEAN CORPUSCULAR HEMOGLOBIN 31.1 uug (23.8-33.4); MEAN CORPUSCULAR HGB CONC 33 g/dL (32.5-36.3); MEAN CORPUSCULAR VOLUME 93.7 fL (73.0-96.2); MONOCYTES # (AUTO) 0.4 K/uL (2.0-10.0); MONOCYTES % (AUTO) 9.7 % (0.0-11.0); NEUTROPHILS # (AUTO) 1.7 K/uL (1.8-8.9); NEUTROPHILS % (AUTO) 44.6 % (38.5-71.5); PLATELET COUNT (AUTO) 122 K/uL (152-348); RED BLOOD CELL COUNT(AUTO) 4.51 MIL/uL (4.06-5.63); WHITE BLOOD COUNT (AUTO) 3.8 K/uL (3.6-10.2)
[2019-02-03 06:44] LABS: CREATININE 1.2 mg/dL (0.6-1.3); MAGNESIUM 1.4 mg/dL (1.8-2.4); PHOSPHOROUS 3.8 mg/dL (2.5-4.9); POTASSIUM 3.9 mmol/L (3.5-5.1)
--- NOTE | 2019-02-03 06:54 | NUR ---
Pt. resting in bed alert oriented x4. IV in R forearm 20 gauge patent intact running fluids. Pt. NPO since midnight. Consent signed and pre op checklist done. Gave report to Surgery nurse. Safety measures in place. Will endorse to AM nurse.
[2019-02-03] MEDS ORDERED: MEPERIDINE 25 MG/1 ML DISP.SYRIN ONE (07:19)
[2019-02-03] MEDS: TAMSULOSIN HCL 0.4 MG CAP.SR.24H PO SCH (08:32)
[2019-02-03] MEDS ORDERED: CEFTRIAXONE 1 G in IV DEXTROSE 5% 50 ML IV SCH (09:00)
[2019-02-03] MEDS ORDERED: CEPH-570 PO (09:02)
[2019-02-03] MEDS ORDERED: TAMS-3 PO (09:02)
[2019-02-03] MEDS ORDERED: MAGNESIUM OXIDE 400 MG TABLET PO ONE (09:15)
--- NOTE | 2019-02-03 10:00 | NUR ---
Received patient returning from procedure. AAOx4. In no acute distress. Denies pain. NO SOB. IV intact and patent with IVF running. Safety and comfort provided. Will continue to monitor throughout shift.
[2019-02-03 11:09] VITALS: BP 119/92
[2019-02-03] MEDS ORDERED: IRR STERIL WATER FOR IRR 1000 ML BOTTLE IR ONE (13:59)
[2019-02-03] MEDS ORDERED: GLYCOPYRROLATE 0.2 MG/ML VIAL MC ONE (13:59)
[2019-02-03] MEDS ORDERED: IV NORMAL SALINE 1000 ML BAG IV ONE (13:59)
[2019-02-03] MEDS ORDERED: SEVOFLURANE 250 ML BOTTLE IH ONE (13:59)
[2019-02-03] MEDS ORDERED: PROPOFOL 200 MG/20 ML BOTTLE IV ONE ×2 (13:59)
--- NOTE | 2019-02-03 14:00 | NUR ---
Patient discharged to home. VSS stable. In no acute distress. Exitcare and prescription provided. IV and wristband removed.
== END 2019-02-03 14:00 | disposition home or self-care (01) | DRG 465 ==
LOC: ER 06:29 → MEDSURG3 10:18
PROVIDERS: ADMIT Nurse Practitioner Acute Care; ATTEND Nurse Practitioner Acute Care
PROC: 0T778DZ Dilation of Left Ureter with Intraluminal Device, Via Natural or Artificial Opening Endoscopic (ICD-10-PCS; principal; 2019-02-02)
DX: N13.2 Hydronephrosis with renal and ureteral calculous obstruction (principal); N17.0 Acute kidney failure with tubular necrosis; Z79.899 Other long term (current) drug therapy; Z85.72 Personal history of non-Hodgkin lymphomas; N39.0 Urinary tract infection, site not specified; K44.9 Diaphragmatic hernia without obstruction or gangrene; K57.30 Diverticulosis of large intestine without perforation or abscess without bleeding; K42.9 Umbilical hernia without obstruction or gangrene
CPT/HCPCS: 36415; 74018; 83690; 83735; 84100; 85025; 87086; A4217; A4663; C1758; C2625; G0378; J0696; J1170; J1885; J2175; J2270; J2405; J2550; J3490; J7030; J7060

== ENCOUNTER 2019-02-10 10:59 | Emergency (ER) | payer OTHER ==
[~2019-02-10] VITALS: Ht 177.8 cm; Wt 72.6 kg
[~2019-02-10 10:59] MED LIST changes: +BICT1TAB PO; +CEPH-570 PO; -ESCITALOPRAM OXALATE 5 MG; -HYDR-4354 PO; -HYDROCODONE-ACETAMIN 5-325 MG; -IBU 600 MG TABLET; +TAMS-3 PO; -TAMSULOSIN HCL 0.4 MG CAPSULE
[2019-02-10 11:25] LABS: *BILIRUBIN,URIN NEGATIVE (NEGATIVE); *BLOOD, URINE 3+ (NEGATIVE); *CLARITY,URINE SLIGHTLY CLOUDY (CLEAR); *COLOR,URINE YELLOW (YELLOW); *KETONES,URINE NEGATIVE (NEGATIVE); *UROBILINOGEN,URINE 0.2 E.U./dl (NORMAL); LEUKOCYTE ESTERASE ,URINE 1+ (NEGATIVE); NITRITE, URINE NEGATIVE (NEGATIVE); UGLUCOSE NEGATIVE (NEGATIVE)
[2019-02-10] MEDS ORDERED: IV NORMAL SALINE 1000 ML BAG IV ONE (11:30)
[2019-02-10 11:33] VITALS: BP 123/78
[2019-02-10 11:36] LABS: BACTERIA,URINE MODERATE /HPF (NONE SEEN); RBC,URINE TNTC /HPF (0-3); WBC,URINE 20-50 /HPF (0-3)
[2019-02-10 11:46] LABS: BASOPHILS % (AUTO) 0.7 % (0.0-2.0); EOSINOPHILS # (AUTO) 0.2 K/uL (0.0-0.7); EOSINOPHILS % (AUTO) 5.6 % (0.0-7.0); HEMATOCRIT 46.6 % (36.7-47.1); HEMOGLOBIN 15.3 g/dL (12.5-16.3); LYMPHOCYTES # (AUTO) 1.7 K/uL (20.0-40.0); LYMPHOCYTES % (AUTO) 45.5 % (20.5-51.5); MEAN CORPUSCULAR HGB CONC 33 g/dL (32.5-36.3); MEAN CORPUSCULAR VOLUME 94.6 fL (73.0-96.2); MONOCYTES # (AUTO) 0.4 K/uL (2.0-10.0); MONOCYTES % (AUTO) 10.8 % (0.0-11.0); NEUTROPHILS # (AUTO) 1.4 K/uL (1.8-8.9); NEUTROPHILS % (AUTO) 37.4 % (38.5-71.5); PLATELET COUNT (AUTO) 116 K/uL (152-348); RED BLOOD CELL COUNT(AUTO) 4.93 MIL/uL (4.06-5.63); WHITE BLOOD COUNT (AUTO) 3.8 K/uL (3.6-10.2)
[2019-02-10 11:55] LABS: CREATININE 1.2 mg/dL (0.6-1.3)
[2019-02-10] MEDS ORDERED: MORPHINE SULFATE 4 MG/1 ML DISP.SYRIN IV ONE (12:00)
[2019-02-10] MEDS ORDERED: MORPHINE SULFATE 4 MG/1 ML DISP.SYRIN ONE (12:04)
[2019-02-10] MEDS ORDERED: HYDROMORPHONE 1 MG/1 ML DISP.SYRIN IV ONE (12:30)
[2019-02-10] MEDS ORDERED: HYDROMORPHONE 1 MG/1 ML DISP.SYRIN ONE (12:57)
[2019-02-10] MEDS ORDERED: OXYBUTYNIN CHLORIDE 5 MG TABLET PO ONE (13:00)
[2019-02-10] MEDS ORDERED: OXYBUTYNIN XL 5 MG TABSR PO ONE ×2 (13:16→13:17)
== END 2019-02-10 13:42 | disposition home or self-care (01) ==
LOC: ER 10:59
DX: R10.9 Unspecified abdominal pain (principal); M54.9 Dorsalgia, unspecified; F17.200 Nicotine dependence, unspecified, uncomplicated; F12.10 Cannabis abuse, uncomplicated; Z88.8 Allergy status to other drugs, medicaments and biological substances; Z90.89 Acquired absence of other organs; Z79.899 Other long term (current) drug therapy
CPT/HCPCS: 36415; 74018; 76775; 80048; 81000; 81001; 85025; 87086; 96374; 96375; 99284; J1170; J2270; A4663; J7030

== ENCOUNTER 2019-05-31 10:54 | Inpatient (IN) | payer OTHER ==
[~2019-05-31] VITALS: Ht 177.8 cm; Wt 74.8 kg
[2019-05-31] MEDS ORDERED: ONDANSETRON 4 MG/2 ML VIAL IV ONE (11:15)
[2019-05-31] MEDS ORDERED: KETOROLAC TROMETHAMINE 30 MG INJ IVP ONE (11:15)
[2019-05-31] MEDS ORDERED: HYDROMORPHONE 1 MG/1 ML DISP.SYRIN IV ONE (11:15)
[2019-05-31] MEDS ORDERED: IV NORMAL SALINE 1000 ML BAG IV ONE (11:15)
[2019-05-31] MEDS ORDERED: HYDROMORPHONE 1 MG/1 ML DISP.SYRIN ONE (11:30)
[2019-05-31] MEDS ORDERED: ONDANSETRON 4 MG/2 ML VIAL ONE (11:30)
[2019-05-31] MEDS ORDERED: KETOROLAC TROMETHAMINE 30 MG INJ ONE (11:30)
[2019-05-31 11:38] LABS: BASOPHILS % (AUTO) 0.4 % (0.0-2.0); EOSINOPHILS # (AUTO) 0.1 K/uL (0.0-0.7); EOSINOPHILS % (AUTO) 1.2 % (0.0-7.0); HEMATOCRIT 48.4 % (36.7-47.1); HEMOGLOBIN 16.2 g/dL (12.5-16.3); LYMPHOCYTES # (AUTO) 1.2 K/uL (20.0-40.0); LYMPHOCYTES % (AUTO) 22.9 % (20.5-51.5); MEAN CORPUSCULAR HEMOGLOBIN 30.6 uug (23.8-33.4); MEAN CORPUSCULAR HGB CONC 34 g/dL (32.5-36.3); MEAN CORPUSCULAR VOLUME 91.3 fL (73.0-96.2); MONOCYTES # (AUTO) 0.4 K/uL (2.0-10.0); MONOCYTES % (AUTO) 8.1 % (0.0-11.0); NEUTROPHILS # (AUTO) 3.4 K/uL (1.8-8.9); NEUTROPHILS % (AUTO) 67.4 % (38.5-71.5); PLATELET COUNT (AUTO) 144 K/uL (152-348); RED BLOOD CELL COUNT(AUTO) 5.31 MIL/uL (4.06-5.63); WHITE BLOOD COUNT (AUTO) 5.1 K/uL (3.6-10.2)
[2019-05-31 11:39] LABS: *BILIRUBIN,URIN NEGATIVE (NEGATIVE); *BLOOD, URINE 3+ (NEGATIVE); *CLARITY,URINE TURBID (CLEAR); *COLOR,URINE DARK YELLOW (YELLOW); *KETONES,URINE NEGATIVE (NEGATIVE); *UROBILINOGEN,URINE 0.2 E.U./dl (NORMAL); LEUKOCYTE ESTERASE ,URINE 2+ (NEGATIVE); NITRITE, URINE NEGATIVE (NEGATIVE); PH,URINE 8.5 (5.0-8.0); UGLUCOSE NEGATIVE (NEGATIVE)
[2019-05-31 11:44] LABS: CREATININE 1.2 mg/dL (0.6-1.3); POTASSIUM 3.9 mmol/L (3.5-5.1)
[2019-05-31 11:49] LABS: BILIRUBIN,DIRECT 0.1 mg/dL (0.0-0.2); BILIRUBIN,TOTAL 0.6 mg/dL (0.2-1.0); TOTAL PROTEIN, SERUM 8.4 g/dL (6.4-8.2)
[2019-05-31 12:04] LABS: RBC,URINE TNTC /HPF (0-3); SQUAMOUS EPITHELIAL CELL,UR NONE SEEN /HPF (NONE SEEN)
[2019-05-31 12:05] LABS: BACTERIA,URINE FEW /HPF (NONE SEEN); WBC,URINE 50-80 /HPF (0-3)
[2019-05-31] MEDS ORDERED: CEFTRIAXONE /D5W 50ML IVPB **ER PYXIS IV ONE (12:28)
[2019-05-31] MEDS ORDERED: CEFTRIAXONE 1 G in IV DEXTROSE 5% 50 ML IV ONE (12:30)
[2019-05-31] MEDS ORDERED: IV NS 1000 ML 1,000 ML IV PRN (12:39)
[2019-05-31] MEDS ORDERED: HYDROCODONE/APAP 5-325MG TABLET PO PRN (12:45)
[2019-05-31] MEDS ORDERED: ACETAMINOPHEN 325 MG TABLET PO PRN (12:45)
[2019-05-31] MEDS ORDERED: Z GUARD REMEDY PASTE 57 GM TUBE TOP PRN (12:45)
[2019-05-31] MEDS ORDERED: MAGNESIUM HYDROXIDE 30 ML LIQUID UDC PO PRN (12:45)
[2019-05-31 14:02] VITALS: BP 150/94
[2019-05-31] MEDS: HYDROMORPHONE 1 MG/1 ML DISP.SYRIN IV PRN ×2 (16:08→20:10)
[2019-05-31 16:42] VITALS: BP 141/92
[2019-05-31] MEDS: ONDANSETRON 4 MG/2 ML VIAL IV PRN (18:39)
[2019-05-31] MEDS: TAMSULOSIN HCL 0.4 MG CAP.SR.24H PO SCH (20:10)
[2019-05-31] MEDS: BIKTARVY 50-200-25MG PO SCH (20:29)
[2019-05-31 20:30] VITALS: BP 131/78
[2019-05-31] MEDS: ESCITALOPRAM OXALATE 10 MG TABLET PO SCH (20:48)
[2019-06-01] VITALS: BP 125/82
[2019-06-01] MEDS: HYDROMORPHONE 1 MG/1 ML DISP.SYRIN IV PRN ×6 (00:28→21:23)
[2019-06-01] MEDS: ONDANSETRON 4 MG/2 ML VIAL IV PRN ×3 (00:41→21:30)
[2019-06-01 04:00] VITALS: BP 130/85
[2019-06-01 06:28] LABS: BASOPHILS % (AUTO) 0.4 % (0.0-2.0); EOSINOPHILS # (AUTO) 0.1 K/uL (0.0-0.7); EOSINOPHILS % (AUTO) 2.2 % (0.0-7.0); HEMATOCRIT 44.6 % (36.7-47.1); HEMOGLOBIN 14.8 g/dL (12.5-16.3); LYMPHOCYTES # (AUTO) 1.7 K/uL (20.0-40.0); LYMPHOCYTES % (AUTO) 41.2 % (20.5-51.5); MEAN CORPUSCULAR HEMOGLOBIN 30.5 uug (23.8-33.4); MEAN CORPUSCULAR HGB CONC 33 g/dL (32.5-36.3); MEAN CORPUSCULAR VOLUME 91.9 fL (73.0-96.2); MONOCYTES # (AUTO) 0.4 K/uL (2.0-10.0); MONOCYTES % (AUTO) 10.5 % (0.0-11.0); NEUTROPHILS # (AUTO) 1.8 K/uL (1.8-8.9); NEUTROPHILS % (AUTO) 45.7 % (38.5-71.5); PLATELET COUNT (AUTO) 138 K/uL (152-348); RED BLOOD CELL COUNT(AUTO) 4.85 MIL/uL (4.06-5.63)
[2019-06-01 06:39] LABS: CREATININE 1.1 mg/dL (0.6-1.3); MAGNESIUM 1.6 mg/dL (1.8-2.4); PHOSPHOROUS 3.7 mg/dL (2.5-4.9); POTASSIUM 4.1 mmol/L (3.5-5.1)
[2019-06-01] MEDS: TAMSULOSIN HCL 0.4 MG CAP.SR.24H PO SCH ×2 (08:21→20:43)
[2019-06-01] MEDS ORDERED: Medication Not On Formulary EA (Escitalopram Oxalate (Lexapro) 5 MG) PO SCH (09:00)
[2019-06-01 11:08] VITALS: BP 133/60
[2019-06-01 11:19] VITALS: BP 123/92
[2019-06-01] MEDS ORDERED: MAGNESIUM OXIDE 400 MG TABLET PO ONE (11:45)
[2019-06-01] MEDS: CEFTRIAXONE 1 G in IV DEXTROSE 5% 50 ML IV SCH (12:12)
[2019-06-01 15:29] VITALS: BP 132/87
[2019-06-01 20:17] VITALS: BP 124/86
[2019-06-01] MEDS: BIKTARVY 50-200-25MG PO SCH (20:42)
[2019-06-01] MEDS: ESCITALOPRAM OXALATE 10 MG TABLET PO SCH (20:43)
[2019-06-02] MEDS: HYDROMORPHONE 1 MG/1 ML DISP.SYRIN IV PRN ×2 (01:18→06:52)
[2019-06-02] MEDS: ONDANSETRON 4 MG/2 ML VIAL IV PRN ×3 (03:35→14:54)
[2019-06-02 04:54] VITALS: BP 142/90
[2019-06-02] MEDS: TAMSULOSIN HCL 0.4 MG CAP.SR.24H PO SCH (09:22)
[2019-06-02 11:42] VITALS: BP 124/90
[2019-06-02] MEDS: CEFTRIAXONE 1 G in IV DEXTROSE 5% 50 ML IV SCH (13:00)
[2019-06-02] MEDS ORDERED: LORAZEPAM 1 MG TABLET PO ONE (13:30)
[2019-06-02 15:49] VITALS: BP 131/96
== END 2019-06-02 18:00 | disposition home or self-care (01) | DRG 463 ==
LOC: ER 10:54 → TELE3 13:13 → MEDSURG3 06-01 15:04
PROVIDERS: ADMIT Internal Medicine; ATTEND Internal Medicine
DX: N12 Tubulo-interstitial nephritis, not specified as acute or chronic (principal); F32.9 Major depressive disorder, single episode, unspecified; F41.9 Anxiety disorder, unspecified; N13.2 Hydronephrosis with renal and ureteral calculous obstruction; Z96.0 Presence of urogenital implants; Z85.72 Personal history of non-Hodgkin lymphomas; Z79.899 Other long term (current) drug therapy; Z87.442 Personal history of urinary calculi
CPT/HCPCS: 36415; 83690; 83735; 84100; 85025; 85730; 87086; A4663; G0378; J0696; J1170; J1885; J2405; J7030; J7050; J7060

== ENCOUNTER 2019-09-19 23:03 | Emergency (ER) | payer OTHER ==
[~2019-09-19] VITALS: Ht 177.8 cm; Wt 74.4 kg
[2019-09-20] MEDS ORDERED: IV NORMAL SALINE 1000 ML BAG IV ONE (00:15)
[2019-09-20] MEDS ORDERED: ONDANSETRON 4 MG/2 ML VIAL IV ONE (00:15)
[2019-09-20] MEDS ORDERED: ONDANSETRON 4 MG/2 ML VIAL ONE (00:34)
[2019-09-20] MEDS ORDERED: LORAZEPAM 2 MG/1 ML VIAL ONE (00:50)
[2019-09-20 00:51] LABS: BASOPHILS % (AUTO) 0.3 % (0.0-2.0); CARBON DIOXIDE 23 mmol/L (21-32); CHLORIDE 107 mmol/L (98-107); CREATININE 0.7 mg/dL (0.6-1.3); GLUCOSE 105 mg/dL (74-106); HEMATOCRIT 48.9 % (36.7-47.1); HEMOGLOBIN 16.8 g/dL (12.5-16.3); LYMPHOCYTES # (AUTO) 1.7 K/uL (20.0-40.0); LYMPHOCYTES % (AUTO) 23.9 % (20.5-51.5); MEAN CORPUSCULAR HEMOGLOBIN 31.4 uug (23.8-33.4); MEAN CORPUSCULAR HGB CONC 34 g/dL (32.5-36.3); MEAN CORPUSCULAR VOLUME 91.4 fL (73.0-96.2); MONOCYTES # (AUTO) 0.6 K/uL (2.0-10.0); NEUTROPHILS # (AUTO) 4.7 K/uL (1.8-8.9); NEUTROPHILS % (AUTO) 66.8 % (38.5-71.5); POTASSIUM 4.3 mmol/L (3.5-5.1); RED BLOOD CELL COUNT(AUTO) 5.35 MIL/uL (4.06-5.63); UREA NITROGEN, BLOOD 12 mg/dL (7-18)
[2019-09-20] MEDS ORDERED: LORAZEPAM 2 MG/1 ML VIAL IV ONE (01:00)
[2019-09-20 01:03] LABS: ALANINE AMINOTRANSFERASE 24 U/L (16-63); ALKALINE PHOSPHATASE 54 U/L (50-136); ASPARTATE AMINOTRANSFERASE 31 U/L (15-37); BILIRUBIN,TOTAL 1.1 mg/dL (0.2-1.0); LIPASE 113 U/L (73-393); TOTAL PROTEIN, SERUM 9.1 g/dL (6.4-8.2)
[2019-09-20 01:09] LABS: BILIRUBIN,DIRECT < 0.1 mg/dL (0.0-0.2)
[2019-09-20 01:36] LABS: PLATELET COUNT (AUTO) 116 K/uL (152-348)
--- NOTE | 2019-09-20 01:58 | NUR ---
Patient discharged to home in stable conditon. Written and verbal after care instructions given. Patient verbalizes understanding of instructions. PO challenge well tolerated. Pt states he feels better. VSS.
--- NOTE | 2019-09-20 01:58 | NUR ---
IV removed. Catheter intact and site benign. Pressure and 4x4 gauze applied to site. No bleeding noted.
[2019-09-20 01:59] VITALS: BP 122/82
== END 2019-09-20 02:00 | disposition home or self-care (01) ==
LOC: ER 23:05
DX: R11.2 Nausea with vomiting, unspecified (principal); F17.200 Nicotine dependence, unspecified, uncomplicated; Z79.899 Other long term (current) drug therapy
CPT/HCPCS: 36415; 80048; 80076; 83690; 85025; 96361; 96374; 96375; 99283; J2060; J2405; A4663

== ENCOUNTER 2020-09-03 15:37 | Emergency (ER) | payer OTHER ==
[~2020-09-03] VITALS: Ht 177.8 cm; Wt 76.7 kg
[2020-09-03] MEDS ORDERED: PROPRANOLOL PO (15:58)
[2020-09-03] MEDS ORDERED: CYMBALTA PO (15:58)
[2020-09-03] MEDS ORDERED: KLONOPIN PO (15:58)
[2020-09-03] MEDS ORDERED: ONDANSETRON 4 MG/2 ML VIAL IV ONE (16:15)
[2020-09-03] MEDS ORDERED: IV NORMAL SALINE 1000 ML BAG IV ONE (16:15)
[2020-09-03] MEDS ORDERED: HYDROMORPHONE 1 MG/1 ML DISP.SYRIN IV ONE (16:15)
[2020-09-03] MEDS ORDERED: HYDROMORPHONE 2 MG/1 ML DISP.SYRIN ONE (16:29)
[2020-09-03] MEDS ORDERED: LORAZEPAM 1 MG TABLET ONE (16:29)
[2020-09-03] MEDS ORDERED: LORAZEPAM 0.5 MG TABLET PO ONE (16:30)
[2020-09-03] MEDS ORDERED: ONDANSETRON 4 MG/2 ML VIAL IM ONE (16:30)
[2020-09-03] MEDS ORDERED: HYDROMORPHONE 1 MG/1 ML DISP.SYRIN IM ONE (16:30)
[2020-09-03] MEDS ORDERED: ONDANSETRON 4 MG/2 ML VIAL ONE (16:30)
[2020-09-03 16:37] LABS: *BILIRUBIN,URIN NEGATIVE (NEGATIVE); *BLOOD, URINE 3+ (NEGATIVE); *COLOR,URINE YELLOW (YELLOW); *KETONES,URINE NEGATIVE (NEGATIVE); *UROBILINOGEN,URINE 0.2 E.U./dl (NORMAL); LEUKOCYTE ESTERASE ,URINE TRACE (NEGATIVE); NITRITE, URINE POSITIVE (NEGATIVE); PH,URINE 7.5 (5.0-8.0); UGLUCOSE NEGATIVE (NEGATIVE)
[2020-09-03 16:46] LABS: *CLARITY,URINE SLIGHTLY CLOUDY (CLEAR); RBC,URINE 50-80 /HPF (0-3)
[2020-09-03 16:47] LABS: BACTERIA,URINE MODERATE /HPF (NONE SEEN); SQUAMOUS EPITHELIAL CELL,UR NONE SEEN /HPF (NONE SEEN); URINE AMORPHOUS PHOSPHATES FEW /HPF
--- NOTE | 2020-09-03 17:10 | NUR ---
Patient discharged to home in stable condition. Written and verbal after care instructions given. Patient verbalizes understanding of instructions. Stressed follow up or return to ER for worsening s/s.pt walks in steady gait, says feels better, pt is using uber to go home
[2020-09-03 17:53] VITALS: BP 108/69
== END 2020-09-03 17:10 | disposition home or self-care (01) ==
LOC: ER 15:37
DX: N13.2 Hydronephrosis with renal and ureteral calculous obstruction (principal); F41.9 Anxiety disorder, unspecified; Z85.72 Personal history of non-Hodgkin lymphomas; Z88.8 Allergy status to other drugs, medicaments and biological substances; Z79.899 Other long term (current) drug therapy
CPT/HCPCS: 74176; 81001; 87086; 96372 ×2; 99284; J1170; J2405; A4663

== ENCOUNTER 2020-09-12 12:03 | Emergency (ER) | payer OTHER ==
[~2020-09-12] VITALS: Ht 177.8 cm; Wt 77.1 kg
[~2020-09-12 12:03] MED LIST changes: -CEPH-570 PO; +CYMBALTA PO; -ESCI5TAB PO; +KLONOPIN PO; +PROPRANOLOL PO
--- NOTE | 2020-09-12 12:16 | NUR ---
at bedside for assessment
[2020-09-12] MEDS ORDERED: LORAZEPAM 0.5 MG TABLET PO ONE (12:30)
[2020-09-12] MEDS ORDERED: LORAZEPAM 1 MG TABLET ONE (12:34)
[2020-09-12] MEDS ORDERED: LORAZEPAM 2 MG/1 ML VIAL IM ONE (13:00)
[2020-09-12] MEDS ORDERED: diphenhydrAMINE 50 MG/1 ML VIAL IM ONE (13:00)
[2020-09-12] MEDS ORDERED: diphenhydrAMINE 50 MG/1 ML VIAL ONE (13:06)
[2020-09-12] MEDS ORDERED: LORAZEPAM 2 MG/1 ML VIAL ONE (13:06)
--- NOTE | 2020-09-12 13:09 | NUR ---
patient noted vomiting in emesis bag at this time
[2020-09-12 13:56] VITALS: BP 121/60
--- NOTE | 2020-09-12 13:56 | NUR ---
Patient discharged to home in stable condition. Written and verbal after care instructions given. Patient verbalizes understanding of instructions. Stressed follow up or return to ER for worsening s/s.
== END 2020-09-12 13:57 | disposition home or self-care (01) ==
LOC: ER 12:04
DX: F41.9 Anxiety disorder, unspecified (principal); Z87.442 Personal history of urinary calculi; Z85.72 Personal history of non-Hodgkin lymphomas
CPT/HCPCS: 96372; 99284; J1200; J2060; A4663

== ENCOUNTER 2020-09-14 04:31 | Emergency (ER) | payer OTHER ==
[~2020-09-14] VITALS: Ht 177.8 cm; Wt 77.1 kg
--- NOTE | 2020-09-14 05:14 | NUR ---
DR JOHNSON INTO EVAL PATIENT.
[2020-09-14] MEDS ORDERED: LORAZEPAM 2 MG/1 ML VIAL ONE (05:30)
[2020-09-14] MEDS ORDERED: LORAZEPAM 2 MG/1 ML VIAL IM ONE (05:30)
[2020-09-14 05:43] VITALS: BP 149/95
--- NOTE | 2020-09-14 05:43 | NUR ---
Patient discharged to home in stable condition. Written and verbal after care instructions given. Patient verbalizes understanding of instructions. Stressed follow up or return to ER for worsening s/s. Patient ambulates without difficulty, received Rx, left with all belongings, instructed to not drive.
== END 2020-09-14 05:43 | disposition home or self-care (01) ==
LOC: ER 04:33
DX: F41.9 Anxiety disorder, unspecified (principal); R03.0 Elevated blood-pressure reading, without diagnosis of hypertension; Z88.8 Allergy status to other drugs, medicaments and biological substances; Z85.72 Personal history of non-Hodgkin lymphomas; R94.31 Abnormal electrocardiogram [ECG] [EKG]
CPT/HCPCS: 93005; 96372; 99283; J2060; A4663

== ENCOUNTER 2020-11-13 06:09 | Emergency (ER) | payer OTHER ==
[~2020-11-13] VITALS: Ht 175.3 cm; Wt 76.7 kg
[2020-11-13] MEDS ORDERED: LORAZEPAM 2 MG/1 ML VIAL IM ONE (06:30)
[2020-11-13] MEDS ORDERED: ONDANSETRON 4 MG/2 ML VIAL IM ONE (06:30)
[2020-11-13] MEDS ORDERED: LORAZEPAM 2 MG/1 ML VIAL ONE (06:38)
[2020-11-13] MEDS ORDERED: ONDANSETRON 4 MG/2 ML VIAL ONE (06:38)
--- NOTE | 2020-11-13 07:01 | NUR ---
Patient noted waiting in room for uber to arrive
--- NOTE | 2020-11-13 07:12 | NUR ---
Patient discharged to home in stable condition. Written and verbal after care instructions given. Patient verbalizes understanding of instructions. Stressed follow up or return to ER for worsening s/s. Patient states he is taking an Uber home.
[2020-11-13 07:13] VITALS: BP 140/85
== END 2020-11-13 07:13 | disposition home or self-care (01) ==
LOC: ER 06:14
DX: F41.9 Anxiety disorder, unspecified (principal); Z88.8 Allergy status to other drugs, medicaments and biological substances; Z85.72 Personal history of non-Hodgkin lymphomas; Z87.442 Personal history of urinary calculi
CPT/HCPCS: 96372 ×2; 99284; J2060; J2405; A4663

== ENCOUNTER 2021-01-22 14:47 | Emergency (ER) | payer OTHER ==
[~2021-01-22] VITALS: Ht 175.3 cm; Wt 76.7 kg
[2021-01-22] MEDS ORDERED: DULO30CA2 PO (14:58)
[2021-01-22] MEDS ORDERED: LORAZEPAM 2 MG/1 ML VIAL IM ONE (16:30)
[2021-01-22] MEDS ORDERED: ONDANSETRON ODT 4 MG TAB.RAPDIS SL ONE (16:30)
[2021-01-22] MEDS ORDERED: ONDANSETRON ODT 4 MG TAB.RAPDIS ONE (17:27)
[2021-01-22] MEDS ORDERED: LORAZEPAM 2 MG/1 ML VIAL ONE (17:28)
== END 2021-01-22 18:05 | disposition home or self-care (01) ==
LOC: ER 14:47
DX: F41.9 Anxiety disorder, unspecified (principal); R11.10 Vomiting, unspecified; Z85.72 Personal history of non-Hodgkin lymphomas; Z87.442 Personal history of urinary calculi
CPT/HCPCS: 96372; 99283; J2060; A4663; Q0162

== ENCOUNTER 2021-02-06 04:42 | Emergency (ER) | payer OTHER ==
[~2021-02-06] VITALS: Ht 175.3 cm; Wt 76.7 kg
[~2021-02-06 04:42] MED LIST changes: +DULO30CA2 PO; -TAMS-3 PO
--- NOTE | 2021-02-06 05:01 | NUR ---
55 y/o male uber'd to ED jose [facility] for anxiety/panic attack that has been present since last night. At around 0130 he took propanolol but it was not effective. He has been seen here for similar issues on multiple occasions. Hx of HIV positive (not on any antiretrovirals), stage 3 lymphoma, and anxiety. A&Ox4. Able to make needs known. No neurological deficits. PERRLA. Ambulatory w/steady gait. No SI/HI/AH/VH. Disheveled appearance. Normal rate & rhythm. Some diaphoresis present. (HR 65). BP 128/78 on arrival. No cp, no palpitations, no murmurs. Afebrile. No signs of edema. Pulses equal bilaterally. Saturations >94% on room air. no SOB. no labored breathing. Lung sounds clear bilaterally. GI/: Continent. Some nausea & vomiting. No abdominal guarding, tenderness, or distention. Normoactive bowel sounds.
[2021-02-06] MEDS ORDERED: LORAZEPAM 0.5 MG TABLET PO ONE (05:15)
[2021-02-06] MEDS ORDERED: ONDANSETRON ODT 4 MG TAB.RAPDIS SL ONE (05:15)
[2021-02-06] MEDS ORDERED: LORAZEPAM 0.5 MG TABLET ONE (05:18)
[2021-02-06] MEDS ORDERED: ONDANSETRON ODT 4 MG TAB.RAPDIS ONE (05:19)
[2021-02-06] MEDS ORDERED: ONDA4TAB5 PO (05:23)
[2021-02-06] MEDS ORDERED: LORA-259 PO (05:23)
--- NOTE | 2021-02-06 06:09 | NUR ---
Patient discharged to home in stable condition. Written and verbal after care instructions given. Patient verbalizes understanding of instructions. Stressed follow up or return to ER for worsening s/s. VSS. All belongings with patient. Instructed not to drive. Verbalizes improvement in anxiety.
[2021-02-06 06:10] VITALS: BP 116/82
== END 2021-02-06 06:00 | disposition home or self-care (01) ==
LOC: ER 04:43
DX: F41.9 Anxiety disorder, unspecified (principal); R11.2 Nausea with vomiting, unspecified; Z85.72 Personal history of non-Hodgkin lymphomas; Z87.442 Personal history of urinary calculi; Z79.899 Other long term (current) drug therapy
CPT/HCPCS: A4663; Q0162

== ENCOUNTER 2021-02-14 13:11 | Emergency (ER) | payer OTHER ==
[~2021-02-14] VITALS: Ht 175.3 cm; Wt 76.7 kg
[~2021-02-14 13:11] MED LIST changes: +LORA-259 PO; +ONDA4TAB5 PO
--- NOTE | 2021-02-14 13:28 | NUR ---
Dr Castrejon at the bedside for MSE.
[2021-02-14] MEDS ORDERED: ALPR1TAB7 PO (13:51)
[2021-02-14] MEDS ORDERED: LORAZEPAM 2 MG/1 ML VIAL IM ONE (14:00)
[2021-02-14] MEDS ORDERED: LORAZEPAM 2 MG/1 ML VIAL ONE (14:04)
[2021-02-14 14:05] VITALS: BP 135/74
== END 2021-02-14 14:19 | disposition home or self-care (01) ==
LOC: ER 13:11
DX: F41.9 Anxiety disorder, unspecified (principal); Z88.8 Allergy status to other drugs, medicaments and biological substances; Z85.72 Personal history of non-Hodgkin lymphomas; Z87.442 Personal history of urinary calculi; Z79.899 Other long term (current) drug therapy
CPT/HCPCS: 96372; 99283; J2060; A4663

== ENCOUNTER 2021-02-28 12:37 | Emergency (ER) | payer OTHER ==
[~2021-02-28] VITALS: Ht 175.3 cm; Wt 76.2 kg
[~2021-02-28 12:37] MED LIST changes: +ALPR1TAB7 PO
--- NOTE | 2021-02-28 12:56 | NUR ---
at bedside for assessment
[2021-02-28] MEDS ORDERED: ONDANSETRON ODT 4 MG TAB.RAPDIS ONE (13:13)
[2021-02-28] MEDS ORDERED: LORAZEPAM 1 MG TABLET ONE (13:13)
[2021-02-28] MEDS ORDERED: LORAZEPAM 1 MG TABLET PO ONE (13:15)
[2021-02-28] MEDS ORDERED: ONDANSETRON ODT 4 MG TAB.RAPDIS SL ONE (13:15)
--- NOTE | 2021-02-28 13:39 | NUR ---
Patient discharged to home in stable condition. no signs of acute distress noted, patient noted walking out to private car. Written and verbal after care instructions given. Patient verbalizes understanding of instructions. Stressed follow up or return to ER for worsening s/s.
[2021-02-28 13:41] VITALS: BP 131/89
== END 2021-02-28 13:09 | disposition home or self-care (01) ==
LOC: ER 12:38
DX: F41.9 Anxiety disorder, unspecified (principal); Z76.5 Malingerer [conscious simulation]; F13.20 Sedative, hypnotic or anxiolytic dependence, uncomplicated; Z85.72 Personal history of non-Hodgkin lymphomas; R11.0 Nausea
CPT/HCPCS: A4663; Q0162

== ENCOUNTER 2021-03-04 11:10 | Emergency (ER) | payer OTHER ==
[~2021-03-04] VITALS: Ht 175.3 cm; Wt 76.7 kg
[2021-03-04] MEDS ORDERED: ONDANSETRON ODT 4 MG TAB.RAPDIS SL ONE (11:30)
[2021-03-04] MEDS ORDERED: LORAZEPAM 2 MG/1 ML VIAL IM ONE (11:30)
--- NOTE | 2021-03-04 11:31 | NUR ---
at bedside for assessment
[2021-03-04] MEDS ORDERED: ONDANSETRON ODT 4 MG TAB.RAPDIS ONE (11:41)
[2021-03-04] MEDS ORDERED: LORAZEPAM 2 MG/1 ML VIAL ONE (11:42)
[2021-03-04 11:59] LABS: HEMATOCRIT 42.6 % (36.7-47.1); MEAN CORPUSCULAR HEMOGLOBIN 31.7 uug (23.8-33.4); MEAN CORPUSCULAR VOLUME 91.6 fL (73.0-96.2); PLATELET COUNT (AUTO) 146 K/uL (152-348)
[2021-03-04 12:05] LABS: CREATININE 1.1 mg/dL (0.6-1.3)
[2021-03-04 12:10] LABS: TOTAL PROTEIN, SERUM 7.5 g/dL (6.4-8.2)
[2021-03-04 12:18] LABS: THYROID STIMULATING HORMONE 0.71 mIU/mL (0.358-3.740)
[2021-03-04] MEDS ORDERED: MAGNESIUM OXIDE 250 MG TABLET PO SCH (12:30)
[2021-03-04] MEDS ORDERED: POTASSIUM CHLORIDE 20 MEQ TAB.PRT.SR PO ONE (12:30)
[2021-03-04] MEDS ORDERED: POTASSIUM CHLORIDE 20 MEQ TAB.PRT.SR ONE (12:37)
--- NOTE | 2021-03-04 12:42 | NUR ---
Patient discharged to home in stable condition. No signs of acute distress noted. Written and verbal after care instructions given. Patient verbalizes understanding of instructions. Stressed follow up or return to ER for worsening s/s.
[2021-03-04] MEDS ORDERED: MAGNESIUM OXIDE 400 MG TABLET ONE (12:45)
[2021-03-04 12:59] VITALS: BP 113/89
== END 2021-03-04 12:30 | disposition home or self-care (01) ==
LOC: ER 11:10
DX: F41.9 Anxiety disorder, unspecified (principal); E87.6 Hypokalemia; Z85.72 Personal history of non-Hodgkin lymphomas
CPT/HCPCS: 36415; 80053; 84443; 85025; 96372; 99284; J2060; A4663; Q0162

== ENCOUNTER 2021-03-13 09:16 | Emergency (ER) | payer OTHER ==
[~2021-03-13] VITALS: Ht 175.3 cm; Wt 76.7 kg
--- NOTE | 2021-03-13 09:33 | NUR ---
at bedside for assessment
[2021-03-13] MEDS ORDERED: ONDANSETRON 4 MG/2 ML VIAL IV ONE (10:00)
[2021-03-13] MEDS ORDERED: LORAZEPAM 0.5 MG TABLET PO ONE (10:00)
[2021-03-13] MEDS ORDERED: OLANZAPINE ZYDIS 5 MG TAB.RAPDIS PO SCH (10:00)
[2021-03-13] MEDS ORDERED: IV NORMAL SALINE 50 ML BAG IV ONE (10:00)
[2021-03-13 10:09] LABS: HEMATOCRIT 41.3 % (36.7-47.1); MEAN CORPUSCULAR HEMOGLOBIN 31.3 uug (23.8-33.4); MEAN CORPUSCULAR VOLUME 90.6 fL (73.0-96.2); PLATELET COUNT (AUTO) 233 K/uL (152-348)
[2021-03-13] MEDS ORDERED: LORAZEPAM 1 MG TABLET ONE (10:13)
[2021-03-13] MEDS ORDERED: ONDANSETRON 4 MG/2 ML VIAL ONE (10:13)
[2021-03-13] MEDS ORDERED: OLANZAPINE 5 MG TABLET ONE (10:13)
[2021-03-13 10:17] LABS: CREATININE 1.3 mg/dL (0.6-1.3); POTASSIUM 3.8 mmol/L (3.5-5.1)
[2021-03-13 10:26] LABS: BILIRUBIN,TOTAL 0.6 mg/dL (0.2-1.0)
--- NOTE | 2021-03-13 11:15 | NUR ---
Patient noted resting at this time, no signs of distress noted, no complaint sof nausea or vomiting noted
[2021-03-13] MEDS ORDERED: ONDA4TAB11 PO (13:07)
[2021-03-13 13:46] VITALS: BP 124/85
== END 2021-03-13 13:40 | disposition home or self-care (01) ==
LOC: ER 09:18
DX: F41.9 Anxiety disorder, unspecified (principal); R10.13 Epigastric pain; R11.2 Nausea with vomiting, unspecified; Z87.442 Personal history of urinary calculi; Z85.72 Personal history of non-Hodgkin lymphomas; Z79.899 Other long term (current) drug therapy
CPT/HCPCS: 36415; 80053; 83690; 85025; 96374; 99284; J2405; J7030

== ENCOUNTER 2021-05-29 05:52 | Emergency (ER) | payer OTHER ==
[~2021-05-29] VITALS: Ht 175.3 cm; Wt 76.7 kg
[~2021-05-29 05:52] MED LIST changes: +ONDA4TAB11 PO
[2021-05-29] MEDS ORDERED: IV NORMAL SALINE 1000 ML BAG IV ONE (07:30)
[2021-05-29] MEDS ORDERED: ONDANSETRON 4 MG/2 ML VIAL IV ONE ×2 (07:30→08:30)
--- NOTE | 2021-05-29 07:33 | NUR ---
pATIENT IS AWAKE AND ALERT. HE IS NAUSEATED AND VOMITED X2. DR JOHNSON AWARE
[2021-05-29 07:54] LABS: HEMATOCRIT 47.7 % (36.7-47.1); MEAN CORPUSCULAR HEMOGLOBIN 29.7 uug (23.8-33.4); MEAN CORPUSCULAR VOLUME 87.5 fL (73.0-96.2); PLATELET COUNT (AUTO) 132 K/uL (152-348)
[2021-05-29 08:00] LABS: CREATININE 1.3 mg/dL (0.6-1.3); POTASSIUM 3.7 mmol/L (3.5-5.1)
[2021-05-29 08:06] LABS: BILIRUBIN,DIRECT 0.1 mg/dL (0.0-0.2); BILIRUBIN,TOTAL 0.5 mg/dL (0.2-1.0); TOTAL PROTEIN, SERUM 8.2 g/dL (6.4-8.2)
[2021-05-29] MEDS ORDERED: ONDANSETRON 4 MG/2 ML VIAL ONE (08:24)
--- NOTE | 2021-05-29 08:40 | NUR ---
PATIENT IS NOT VOMITING ANYMORE
[2021-05-29] MEDS ORDERED: LORAZEPAM 2 MG/1 ML VIAL ONE (08:58)
[2021-05-29] MEDS ORDERED: LORAZEPAM 2 MG/1 ML VIAL IV ONE (09:00)
--- NOTE | 2021-05-29 09:22 | NUR ---
PATIENT WAS VERY ANXIOUS, ATIVAN GIVEN ORDERED. PATIENT IS MORE CALM NOW.
--- NOTE | 2021-05-29 11:25 | NUR ---
PATIENT SPOKE TO DR JOHNSON. IV DC'D BY GLENDY CONNOR.
--- NOTE | 2021-05-29 11:25 | NUR ---
INSTRUCTED PATIENT NOT TO DRIVE BECAUSE OF ATIVAN, HE STATES HIS SISTER IS DRIVING HIM TODAY
--- NOTE | 2021-05-29 11:26 | NUR ---
DC AND FOLLOW UP INSTRUCTIONS GIVEN AND EXPLAINED TO PATIENT WHO STATES HE UNDERSTANDS ALL INSTRUCTIONS
== END 2021-05-29 11:38 | disposition home or self-care (01) ==
LOC: ER 05:54
DX: R11.2 Nausea with vomiting, unspecified (principal); R10.13 Epigastric pain; I44.4 Left anterior fascicular block; Z85.72 Personal history of non-Hodgkin lymphomas; Z87.442 Personal history of urinary calculi; Z88.8 Allergy status to other drugs, medicaments and biological substances; Z79.899 Other long term (current) drug therapy
CPT/HCPCS: 36415; 80048; 80076; 83690; 85025; 93005; 96361; 96374; 96375; 99284; J2060; J2405; A4663; J7030

== ENCOUNTER 2021-06-06 10:45 | Emergency (ER) | payer OTHER ==
[~2021-06-06] VITALS: Ht 175.3 cm; Wt 76.7 kg
--- NOTE | 2021-06-06 10:55 | NUR ---
PT 55 YRS male from home walking in c/o panick attack and abdominal discomfort seen by dr. rony rowanness
[2021-06-06] MEDS: LORAZEPAM 2 MG/1 ML VIAL IM ONE (11:09)
[2021-06-06] MEDS: ONDANSETRON 4 MG/2 ML VIAL IM ONE (11:10)
[2021-06-06] MEDS ORDERED: ONDANSETRON 4 MG/2 ML VIAL ONE (11:14)
[2021-06-06] MEDS ORDERED: LORAZEPAM 2 MG/1 ML VIAL ONE (11:15)
[2021-06-06] MEDS ORDERED: ONDA4TAB5 PO (11:22)
--- NOTE | 2021-06-06 11:26 | NUR ---
resting at this time responded to tx
--- NOTE | 2021-06-06 11:43 | NUR ---
pt improved responded to tx no dicomfort noted d/c instraction given to pt fully and verblized understood d/c home stable vs
[2021-06-06 11:47] VITALS: BP 118/90
== END 2021-06-06 11:48 | disposition home or self-care (01) ==
LOC: ER 10:45
DX: F41.9 Anxiety disorder, unspecified (principal); R10.9 Unspecified abdominal pain; R11.0 Nausea; Z85.72 Personal history of non-Hodgkin lymphomas; Z87.442 Personal history of urinary calculi
CPT/HCPCS: 96372 ×2; 99284; J2060; J2405; A4663

== ENCOUNTER 2021-06-16 05:08 | Emergency (ER) | payer OTHER ==
[~2021-06-16] VITALS: Ht 175.3 cm; Wt 76.7 kg
[2021-06-16] MEDS ORDERED: IV NORMAL SALINE 1000 ML BAG IV ONE ×2 (05:45→08:15)
[2021-06-16] MEDS ORDERED: ONDANSETRON 4 MG/2 ML VIAL IV ONE ×2 (05:45→08:15)
[2021-06-16] MEDS ORDERED: ONDANSETRON 4 MG/2 ML VIAL ONE ×2 (05:55→08:12)
[2021-06-16] MEDS ORDERED: LORAZEPAM 2 MG/1 ML VIAL ONE ×2 (05:58→08:48)
[2021-06-16 06:00] LABS: MEAN CORPUSCULAR HEMOGLOBIN 29.4 uug (23.8-33.4); MEAN CORPUSCULAR VOLUME 87.5 fL (73.0-96.2); PLATELET COUNT (AUTO) 121 K/uL (152-348)
[2021-06-16] MEDS ORDERED: LORAZEPAM 2 MG/1 ML VIAL IV ONE ×2 (06:00→08:45)
--- NOTE | 2021-06-16 06:00 | NUR ---
received patient awake , oriented x 4 , nausea present but no vomiting noted , anxiety present, on room air , iv started left hand with 22 ga
[2021-06-16 06:02] LABS: CREATININE 1.2 mg/dL (0.6-1.3); POTASSIUM 4.1 mmol/L (3.5-5.1)
[2021-06-16 06:07] LABS: BILIRUBIN,TOTAL 0.4 mg/dL (0.2-1.0); TOTAL PROTEIN, SERUM 7.6 g/dL (6.4-8.2)
--- NOTE | 2021-06-16 06:14 | NUR ---
vicky catheter on right subclavian present , no signs of infection noted
[2021-06-16] MEDS ORDERED: ONDA8TAB13 PO (06:21)
--- NOTE | 2021-06-16 06:49 | NUR ---
sleeping , arousable to light touch , no nausea noted after zofran given , more relaxed after ativan and ns bolus still running
--- NOTE | 2021-06-16 07:15 | NUR ---
Pt A&Ox4 lying supine in NAD at this time. Hand-off received from GEETA Woods
--- NOTE | 2021-06-16 08:00 | NUR ---
Fluids complete. Pt states return of nausea and "swirling in the stomach" provider notified. Provider will input orders for further medication and hydration Tx.
[2021-06-16] MEDS ORDERED: PANTOPRAZOLE SODIUM 40 MG VIAL ONE (08:12)
[2021-06-16] MEDS ORDERED: PANTOPRAZOLE SODIUM 40 MG VIAL IV ONE (08:15)
--- NOTE | 2021-06-16 08:48 | NUR ---
IV protonix complete Addendum: 06/16/21 at 0851 by MAIK IV protonix complete. Second dose of Ativan given, states sister will be picking him up.
--- NOTE | 2021-06-16 09:28 | NUR ---
Pt in stable condition. States improvement in S/S. Addendum: 06/16/21 at 0929 by MAIK Pt stable. States improvement in S/S. Sister pickup ETA 1hr.
--- NOTE | 2021-06-16 10:20 | NUR ---
IV hydration complete. Pt states improvement in S/S. States sister almost here. Will prepare D/C information.
[2021-06-16 10:48] VITALS: BP 136/83
== END 2021-06-16 10:45 | disposition home or self-care (01) ==
LOC: ER 05:10
DX: R11.2 Nausea with vomiting, unspecified (principal); F41.9 Anxiety disorder, unspecified; Z20.822 Contact with and (suspected) exposure to COVID-19; Z85.72 Personal history of non-Hodgkin lymphomas; Z79.899 Other long term (current) drug therapy; Z82.49 Family history of ischemic heart disease and other diseases of the circulatory system
CPT/HCPCS: 36415; 80053; 83690; 84484; 85025; 87426; 93005; 96361; 96374; 96375; 96376; 99285; C9113; J2060 ×2; J2405 ×2; 70030-TC; A4663; J3490; J7030

== ENCOUNTER 2021-06-30 11:26 | Emergency (ER) | payer OTHER ==
[~2021-06-30] VITALS: Ht 175.3 cm; Wt 76.7 kg
[~2021-06-30 11:26] MED LIST changes: +ONDA8TAB13 PO
[2021-06-30] MEDS ORDERED: LORAZEPAM 2 MG/1 ML VIAL IV ONE (11:45)
[2021-06-30] MEDS ORDERED: HALOPERIDOL LACTATE 5 MG/1 ML VIAL IV ONE (11:45)
[2021-06-30] MEDS ORDERED: IV NORMAL SALINE 1000 ML BAG IV ONE (11:45)
[2021-06-30] MEDS ORDERED: LORAZEPAM 2 MG/1 ML VIAL ONE (11:52)
[2021-06-30] MEDS ORDERED: HALOPERIDOL LACTATE 5 MG/1 ML VIAL ONE (11:53)
[2021-06-30 12:00] LABS: HEMATOCRIT 46.6 % (36.7-47.1); MEAN CORPUSCULAR HEMOGLOBIN 29.5 uug (23.8-33.4); MEAN CORPUSCULAR VOLUME 87.2 fL (73.0-96.2); PLATELET COUNT (AUTO) 139 K/uL (152-348)
--- NOTE | 2021-06-30 12:01 | NUR ---
PT IS IN ROOM #2B. DR ENNIS EVALUATED THE PT.
[2021-06-30 12:05] LABS: CREATININE 1.2 mg/dL (0.6-1.3); POTASSIUM 3.6 mmol/L (3.5-5.1)
[2021-06-30 12:10] LABS: BILIRUBIN,TOTAL 0.6 mg/dL (0.2-1.0); TOTAL PROTEIN, SERUM 8.2 g/dL (6.4-8.2)
--- NOTE | 2021-06-30 13:19 | NUR ---
PT WAS D/C'd TO HOME. D/C INSTRUCTIONS GIVEN TO THE PT BY DR ENNIS.
[2021-06-30 13:21] VITALS: BP 139/90
== END 2021-06-30 13:21 | disposition home or self-care (01) ==
LOC: ER 11:29
DX: F41.9 Anxiety disorder, unspecified (principal); R11.2 Nausea with vomiting, unspecified; R10.13 Epigastric pain; Z85.72 Personal history of non-Hodgkin lymphomas; Z87.442 Personal history of urinary calculi; Z79.899 Other long term (current) drug therapy
CPT/HCPCS: 36415; 74176; 80053; 83690; 85025; 96361; 96374; 96375; 99284; J1630; J2060; A4663; J7030

== ENCOUNTER 2021-07-15 12:40 | Emergency (ER) | payer OTHER ==
[~2021-07-15] VITALS: Ht 175.3 cm; Wt 76.7 kg
--- NOTE | 2021-07-15 13:46 | NUR ---
Dr Jones at the bedside for MSE.
[2021-07-15] MEDS ORDERED: ONDANSETRON 4 MG/2 ML VIAL IV ONE (14:45)
[2021-07-15] MEDS ORDERED: IV NORMAL SALINE 100 ML BAG IV ONE (14:45)
[2021-07-15] MEDS ORDERED: LORAZEPAM 0.5 MG TABLET PO ONE (14:45)
[2021-07-15] MEDS ORDERED: FAMOTIDINE 20 MG TABLET PO ONE (14:45)
[2021-07-15 15:02] LABS: HEMATOCRIT 47.4 % (36.7-47.1); MEAN CORPUSCULAR HEMOGLOBIN 29.8 uug (23.8-33.4); MEAN CORPUSCULAR VOLUME 87.4 fL (73.0-96.2); PLATELET COUNT (AUTO) 113 K/uL (152-348)
[2021-07-15 15:22] LABS: CREATININE 1.2 mg/dL (0.6-1.3); POTASSIUM 3.4 mmol/L (3.5-5.1)
[2021-07-15] MEDS ORDERED: FAMOTIDINE 20 MG TABLET ONE (15:26)
[2021-07-15] MEDS ORDERED: LORAZEPAM 1 MG TABLET ONE (15:26)
--- NOTE | 2021-07-15 15:27 | NUR ---
Pt refused Hl and IVF, Dr Molina aware.
[2021-07-15 15:34] LABS: BILIRUBIN,TOTAL 0.7 mg/dL (0.2-1.0); TOTAL PROTEIN, SERUM 7.9 g/dL (6.4-8.2)
[2021-07-15 15:58] LABS: THYROID STIMULATING HORMONE 1.071 mIU/mL (0.358-3.740)
[2021-07-15 16:07] VITALS: BP 114/79
== END 2021-07-15 16:08 | disposition home or self-care (01) ==
LOC: ER 12:40
DX: R10.9 Unspecified abdominal pain (principal); G89.29 Other chronic pain; F41.9 Anxiety disorder, unspecified; Z86.718 Personal history of other venous thrombosis and embolism; Z88.8 Allergy status to other drugs, medicaments and biological substances; Z85.72 Personal history of non-Hodgkin lymphomas; Z87.442 Personal history of urinary calculi; Z79.899 Other long term (current) drug therapy; R94.31 Abnormal electrocardiogram [ECG] [EKG]
CPT/HCPCS: 36415; 70030-TC; 83690; 84443; 85025; 93005; A4663

== ENCOUNTER 2023-04-06 10:55 | Inpatient (IN) | payer OTHER ==
[~2023-04-06] VITALS: Ht 180.3 cm; Wt 72.6 kg
[2023-04-06] MEDS ORDERED: ONDANSETRON 4 MG/2 ML VIAL IV ONE (12:00)
[2023-04-06] MEDS ORDERED: KETOROLAC TROMETHAMINE 15 MG INJ IVP ONE (12:00)
[2023-04-06] MEDS ORDERED: ONDANSETRON 4 MG/2 ML VIAL ONE (12:11)
[2023-04-06] MEDS ORDERED: KETOROLAC TROMETHAMINE 15 MG INJ ONE (12:12)
[2023-04-06 12:17] LABS: BASOPHILS % (AUTO) 0.6 % (0.0-2.0); EOSINOPHILS % (AUTO) 0.1 % (0.0-7.0); HEMATOCRIT 45.8 % (36.7-47.1); HEMOGLOBIN 15.5 g/dL (12.5-16.3); LYMPHOCYTES # (AUTO) 1.7 K/uL (0.8-4.8); LYMPHOCYTES % (AUTO) 24.3 % (20.5-51.5); MEAN CORPUSCULAR HEMOGLOBIN 32.2 uug (23.8-33.4); MEAN CORPUSCULAR HGB CONC 34 g/dL (32.5-36.3); MEAN CORPUSCULAR VOLUME 95.2 fL (73.0-96.2); MONOCYTES # (AUTO) 0.6 K/uL (0.1-1.30); MONOCYTES % (AUTO) 7.9 % (0.0-11.0); NEUTROPHILS # (AUTO) 4.8 K/uL (1.8-8.9); NEUTROPHILS % (AUTO) 67.1 % (38.5-71.5); PLATELET COUNT (AUTO) 106 K/uL (152-348); RED BLOOD CELL COUNT(AUTO) 4.82 MIL/uL (4.06-5.63); RED CELL DISTRIBUTION WIDTH 14.9 % (12.1-16.2); WHITE BLOOD COUNT (AUTO) 7.1 K/uL (3.6-10.2)
[2023-04-06 12:41] LABS: ALANINE AMINOTRANSFERASE 15 U/L (16-63); ALBUMIN 3.9 g/dL (3.4-5.0); ALKALINE PHOSPHATASE 58 U/L (50-136); ASPARTATE AMINOTRANSFERASE 19 U/L (15-37); BILIRUBIN,DIRECT 0.3 mg/dL (0.0-0.2); CALCIUM 9.2 mg/dL (8.5-10.1); CARBON DIOXIDE 18 mmol/L (21-32); CHLORIDE 105 mmol/L (98-107); CREATININE 1.1 mg/dL (0.6-1.3); GLUCOSE 112 mg/dL (74-106); POTASSIUM 3.5 mmol/L (3.5-5.1); SODIUM SERUM 142 mmol/L (136-145); TOTAL PROTEIN, SERUM 7.4 g/dL (6.4-8.2); UREA NITROGEN, BLOOD 8 mg/dL (7-18)
[2023-04-06 13:17] LABS: LACTIC ACID 2.1 mmol/L (0.4-2.0)
[2023-04-06] MEDS ORDERED: IV NORMAL SALINE 1000 ML BAG IV ONE (13:45)
[2023-04-06] MEDS ORDERED: METRONIDAZOLE 500 MG/NS 100 ML PIGGYBACK IV ONE (13:45)
[2023-04-06] MEDS ORDERED: CEFTRIAXONE 2 G in IV DEXTROSE 5% 100 ML IV ONE (13:45)
[2023-04-06] MEDS ORDERED: CEFTRIAXONE /D5W 50ML IVPB **ER PYXIS IV ONE (13:46)
[2023-04-06] MEDS ORDERED: METRONIDAZOLE 500 MG/NS 100ML 100 ML IV ONE (13:47)
[2023-04-06] MEDS ORDERED: HYDROMORPHONE 1 MG/1 ML DISP.SYRIN IV ONE (14:00)
[2023-04-06] MEDS ORDERED: diphenhydrAMINE 50 MG/1 ML VIAL IV ONE (14:00)
[2023-04-06] MEDS ORDERED: diphenhydrAMINE 50 MG/1 ML VIAL ONE (14:03)
[2023-04-06] MEDS ORDERED: HYDROMORPHONE 1 MG/1 ML DISP.SYRIN ONE (14:03)
[2023-04-06 14:43] LABS: LIPASE 69 U/L (73-393)
[2023-04-06] MEDS ORDERED: ACETAMINOPHEN 325 MG TABLET PO PRN (16:45)
[2023-04-06] MEDS ORDERED: MAGNESIUM HYDROXIDE 30 ML LIQUID UDC PO PRN (16:45)
[2023-04-06] MEDS ORDERED: REMEDY ESSENTIAL ZINC PASTE 113 GM TP PRN (16:45)
[2023-04-06 17:15] VITALS: BP 145/87; TEMP 98.4; O2SAT 99
[2023-04-06] MEDS: IV D5 1/2 NS 1000 ML 1,000 ML IV PRN (18:57)
[2023-04-06 20:00] VITALS: BP 145/95; TEMP 98.5; O2SAT 99
[2023-04-06] MEDS: PIPERACILLIN SODIUM/TAZOBACTAM 3.375 G in IV DEXTROSE 5% 100 ML IV SCH (21:36)
[2023-04-06] MEDS ORDERED: PIPERACILLIN SODIUM/TAZOBACTAM 4.5 G in IV DEXTROSE 5% 50 ML IV SCH (22:00)
[2023-04-07 04:00] VITALS: BP 151/82; TEMP 98.6; O2SAT 99
[2023-04-07] MEDS: IV D5 1/2 NS 1000 ML 1,000 ML IV PRN (04:49)
[2023-04-07] MEDS: PIPERACILLIN SODIUM/TAZOBACTAM 3.375 G in IV DEXTROSE 5% 100 ML IV SCH ×3 (05:50→21:34)
[2023-04-07 06:06] LABS: *OCCULT BLOOD STOOL POSITIVE (NEGATIVE)
[2023-04-07 07:28] LABS: BASOPHILS % (AUTO) 0.4 % (0.0-2.0); EOSINOPHILS % (AUTO) 0.3 % (0.0-7.0); HEMATOCRIT 41.5 % (36.7-47.1); HEMOGLOBIN 14.4 g/dL (12.5-16.3); LYMPHOCYTES # (AUTO) 1.2 K/uL (0.8-4.8); LYMPHOCYTES % (AUTO) 21.4 % (20.5-51.5); MEAN CORPUSCULAR HEMOGLOBIN 32.8 uug (23.8-33.4); MEAN CORPUSCULAR HGB CONC 35 g/dL (32.5-36.3); MEAN CORPUSCULAR VOLUME 94.8 fL (73.0-96.2); MONOCYTES # (AUTO) 0.7 K/uL (0.1-1.30); MONOCYTES % (AUTO) 11.9 % (0.0-11.0); NEUTROPHILS # (AUTO) 3.7 K/uL (1.8-8.9); PLATELET COUNT (AUTO) 98 K/uL (152-348); RED BLOOD CELL COUNT(AUTO) 4.37 MIL/uL (4.06-5.63); RED CELL DISTRIBUTION WIDTH 14.6 % (12.1-16.2); WHITE BLOOD COUNT (AUTO) 5.7 K/uL (3.6-10.2)
[2023-04-07 07:31] LABS: DIFFERENTIAL COMMENT 1
[2023-04-07 08:05] LABS: CALCIUM 8.6 mg/dL (8.5-10.1); CREATININE 1.1 mg/dL (0.6-1.3); MAGNESIUM 1.3 mg/dL (1.8-2.4); PHOSPHOROUS 2.5 mg/dL (2.5-4.9); POTASSIUM 3.2 mmol/L (3.5-5.1)
[2023-04-07] MEDS ORDERED: POTASSIUM CHLORIDE 20 MEQ TAB.PRT.SR PO ONE (09:15)
[2023-04-07 09:16] LABS: *BILIRUBIN,URIN NEGATIVE (NEGATIVE); *BLOOD, URINE 2+ (NEGATIVE); *CLARITY,URINE CLEAR (CLEAR); *COLOR,URINE YELLOW (YELLOW); *KETONES,URINE TRACE (NEGATIVE); *PROTEIN,URINE NEGATIVE (NEGATIVE); *UROBILINOGEN,URINE 0.2 E.U./dl (NORMAL); LEUKOCYTE ESTERASE ,URINE 2+ (NEGATIVE); NITRITE, URINE POSITIVE (NEGATIVE); PH,URINE 6.5 (5.0-8.0); UGLUCOSE NEGATIVE (NEGATIVE)
[2023-04-07 09:41] LABS: BACTERIA,URINE FEW /HPF (NONE SEEN); RBC,URINE 20-50 /HPF (0-3); WBC,URINE 50-80 /HPF (0-3)
[2023-04-07 09:42] LABS: SQUAMOUS EPITHELIAL CELL,UR FEW /HPF (NONE SEEN)
[2023-04-07] MEDS ORDERED: MAGNESIUM OXIDE 400 MG TABLET PO ONE (10:00)
[2023-04-07] MEDS: HYDROMORPHONE 1 MG/1 ML DISP.SYRIN IV PRN (10:45)
[2023-04-07] MEDS: ONDANSETRON 4 MG/2 ML VIAL IV PRN (13:33)
[2023-04-07] MEDS ORDERED: PARO40TA PO (14:06)
[2023-04-07] MEDS ORDERED: CLON1TAB12 PO (14:07)
[2023-04-07] MEDS ORDERED: CLONIDINE HCL 0.1 MG TABLET PO PRN (18:00)
[2023-04-07] MEDS ORDERED: CLONAZEPAM 1 MG TABLET PO PRN (18:00)
[2023-04-07 20:10] VITALS: BP 127/88; TEMP 98.2; O2SAT 98
[2023-04-07] MEDS: BIKTARVY PO SCH (20:18)
[2023-04-07] MEDS ORDERED: MAGNESIUM OXIDE 400 MG TABLET PO SCH (21:00)
[2023-04-08] MEDS: HYDROMORPHONE 1 MG/1 ML DISP.SYRIN IV PRN ×2 (02:31→10:15)
[2023-04-08 04:28] VITALS: BP 117/82; TEMP 98; O2SAT 98
[2023-04-08] MEDS: PIPERACILLIN SODIUM/TAZOBACTAM 3.375 G in IV DEXTROSE 5% 100 ML IV SCH ×2 (05:11→14:13)
[2023-04-08] MEDS: ONDANSETRON 4 MG/2 ML VIAL IV PRN (05:11)
[2023-04-08 07:13] LABS: BASOPHILS % (AUTO) 0.7 % (0.0-2.0); EOSINOPHILS # (AUTO) 0.1 K/uL (0.0-0.7); EOSINOPHILS % (AUTO) 2.3 % (0.0-7.0); LYMPHOCYTES # (AUTO) 1.4 K/uL (0.8-4.8); LYMPHOCYTES % (AUTO) 31.2 % (20.5-51.5); MEAN CORPUSCULAR HEMOGLOBIN 32.5 uug (23.8-33.4); MEAN CORPUSCULAR HGB CONC 34 g/dL (32.5-36.3); MEAN CORPUSCULAR VOLUME 95.5 fL (73.0-96.2); MONOCYTES # (AUTO) 0.6 K/uL (0.1-1.30); MONOCYTES % (AUTO) 12.7 % (0.0-11.0); NEUTROPHILS # (AUTO) 2.3 K/uL (1.8-8.9); NEUTROPHILS % (AUTO) 53.1 % (38.5-71.5); PLATELET COUNT (AUTO) 105 K/uL (152-348); RED BLOOD CELL COUNT(AUTO) 4.61 MIL/uL (4.06-5.63); RED CELL DISTRIBUTION WIDTH 14.7 % (12.1-16.2); WHITE BLOOD COUNT (AUTO) 4.4 K/uL (3.6-10.2)
[2023-04-08 07:22] LABS: DIFFERENTIAL COMMENT 1
[2023-04-08 07:23] LABS: CALCIUM 8.7 mg/dL (8.5-10.1); CREATININE 1.1 mg/dL (0.6-1.3); MAGNESIUM 1.6 mg/dL (1.8-2.4); PHOSPHOROUS 2.9 mg/dL (2.5-4.9); POTASSIUM 3.3 mmol/L (3.5-5.1)
[2023-04-08] MEDS ORDERED: POTASSIUM CHLORIDE 20 MEQ TAB.PRT.SR PO ONE (08:00)
[2023-04-08] MEDS: BIKTARVY PO SCH (08:48)
[2023-04-08] MEDS ORDERED: PAROXETINE HCL 20 MG TABLET PO SCH (09:00)
[2023-04-08] MEDS ORDERED: LEVO500T90 PO (09:00)
[2023-04-08] MEDS ORDERED: LOPE2CAP40 PO (09:00)
[2023-04-08] MEDS: MAGNESIUM SULFATE/D5W 100 ML IV SCH ×2 (10:16→11:00)
== END 2023-04-08 15:50 | disposition home or self-care (01) | DRG 248 ==
LOC: ER 10:55 → MEDSURG3 17:04
PROVIDERS: ADMIT Internal Medicine; ATTEND Internal Medicine
DX: A04.9 Bacterial intestinal infection, unspecified (principal); F32.A Depression, unspecified; F41.9 Anxiety disorder, unspecified; Z85.72 Personal history of non-Hodgkin lymphomas; Z79.899 Other long term (current) drug therapy; Z92.21 Personal history of antineoplastic chemotherapy; Z87.11 Personal history of peptic ulcer disease; Z87.442 Personal history of urinary calculi; Z86.718 Personal history of other venous thrombosis and embolism
CPT/HCPCS: 36415; 71045; 83605; 83690; 83735; 84100; 84484; 85025; 87040; 89055; 93005; G0378; J0696; J1170; J1200; J1885; J2405; J2543; J3475; J3490; J7040

== ENCOUNTER 2023-06-29 12:00 | Emergency (ER) | payer OTHER ==
[~2023-06-29] VITALS: Ht 177.8 cm; Wt 74.8 kg
[~2023-06-29 12:00] MED LIST changes: -ALPR1TAB7 PO; +CLON1TAB12 PO; -CYMBALTA PO; -DULO30CA2 PO; -KLONOPIN PO; +LEVO500T90 PO; +LOPE2CAP40 PO; -LORA-259 PO; -ONDA4TAB11 PO; -ONDA4TAB5 PO; -ONDA8TAB13 PO; +PARO40TA PO; -PROPRANOLOL PO
[2023-06-29] MEDS ORDERED: ONDANSETRON HCL 4 MG TABLET PO ONE (13:30)
[2023-06-29] MEDS ORDERED: LORAZEPAM 0.5 MG TABLET PO ONE (13:30)
[2023-06-29] MEDS ORDERED: LORAZEPAM 1 MG TABLET ONE (13:40)
[2023-06-29] MEDS ORDERED: ONDANSETRON HCL 4 MG TABLET ONE (13:40)
[2023-06-29 14:13] LABS: CALCIUM 9.3 mg/dL (8.5-10.1); CREATININE 1.1 mg/dL (0.6-1.3); POTASSIUM 3.2 mmol/L (3.5-5.1)
[2023-06-29 14:18] LABS: BASOPHILS % (AUTO) 0.6 % (0.0-2.0); DIFFERENTIAL COMMENT 0; EOSINOPHILS % (AUTO) 0.2 % (0.0-7.0); HEMATOCRIT 44.3 % (36.7-47.1); HEMOGLOBIN 14.9 g/dL (12.5-16.3); LYMPHOCYTES # (AUTO) 0.5 K/uL (0.8-4.8); LYMPHOCYTES % (AUTO) 8.4 % (20.5-51.5); MEAN CORPUSCULAR HEMOGLOBIN 31.9 uug (23.8-33.4); MEAN CORPUSCULAR HGB CONC 34 g/dL (32.5-36.3); MEAN CORPUSCULAR VOLUME 94.8 fL (73.0-96.2); MONOCYTES # (AUTO) 0.7 K/uL (0.1-1.30); NEUTROPHILS # (AUTO) 4.1 K/uL (1.8-8.9); NEUTROPHILS % (AUTO) 76.8 % (38.5-71.5); PLATELET COUNT (AUTO) 117 K/uL (152-348); RED BLOOD CELL COUNT(AUTO) 4.67 MIL/uL (4.06-5.63); RED CELL DISTRIBUTION WIDTH 15.1 % (12.1-16.2); WHITE BLOOD COUNT (AUTO) 5.3 K/uL (3.6-10.2)
[2023-06-29] MEDS ORDERED: POTASSIUM BICARBONATE/CIT AC 25 MEQ TABLET.EFF PO ONE (15:15)
[2023-06-29] MEDS ORDERED: HYDROCODONE/APAP 10-325 MG TABLET PO ONE (15:15)
[2023-06-29] MEDS ORDERED: HYDROCODONE/APAP 10-325 MG TABLET ONE (15:19)
[2023-06-29] MEDS ORDERED: POTASSIUM BICARBONATE/CIT AC 25 MEQ TABLET.EFF ONE (15:20)
[2023-06-29] MEDS ORDERED: ACET1TAB23 PO (15:58)
[2023-06-29] MEDS ORDERED: ONDA4TAB5 PO (15:58)
[2023-06-29 16:24] VITALS: BP 123/75; TEMP 98.2; O2SAT 98
[2023-07-01] MEDS ORDERED: METRONIDAZOLE 500 MG/NS 100ML 100 ML IV ONE ×2 (22:13→22:14)
[2023-07-05] MEDS ORDERED: CEFD300C3 PO (12:44)
[2023-07-05] MEDS ORDERED: METR500T PO (12:44)
[2023-07-05] MEDS ORDERED: ONDA4TAB11 PO (12:44)
[2023-07-05] MEDS ORDERED: DICY10CA13 PO (12:44)
[2023-07-05] MEDS ORDERED: HYDR-4209 PO (12:44)
== END 2023-06-29 16:25 | disposition home or self-care (01) ==
LOC: ER 12:00
DX: R10.84 Generalized abdominal pain (principal); E86.0 Dehydration; E87.6 Hypokalemia; R07.89 Other chest pain; Z90.89 Acquired absence of other organs; Z88.8 Allergy status to other drugs, medicaments and biological substances; Z79.2 Long term (current) use of antibiotics; Z79.899 Other long term (current) drug therapy
CPT/HCPCS: 36415; 71045; 85025; A4606; A4663; J3490; J7040; Q0162

== ENCOUNTER 2023-07-01 03:33 | Inpatient (IN) | payer OTHER ==
[~2023-07-01] VITALS: Ht 177.8 cm; Wt 74.8 kg
[~2023-07-01 03:33] MED LIST changes: +ACET1TAB23 PO; +ONDA4TAB5 PO
[2023-07-01] MEDS ORDERED: MORPHINE SULFATE 4 MG/1 ML DISP.SYRIN IV ONE (04:00)
[2023-07-01] MEDS ORDERED: IV NS 1000 ML 1,000 ML IV ONE ×2 (04:00→07:15)
[2023-07-01] MEDS ORDERED: ONDANSETRON 4 MG/2 ML VIAL IV ONE (04:00)
[2023-07-01] MEDS ORDERED: ONDANSETRON 4 MG/2 ML VIAL ONE (04:22)
[2023-07-01] MEDS ORDERED: MORPHINE SULFATE 4 MG/1 ML DISP.SYRIN ONE (04:23)
[2023-07-01 04:25] LABS: BASOPHILS # (AUTO) 0.1 K/UL (0.0-0.2); BASOPHILS % (AUTO) 0.8 % (0.0-2.0); HEMOGLOBIN 15.3 g/dL (12.5-16.3); LYMPHOCYTES # (AUTO) 0.9 K/uL (0.8-4.8); MEAN CORPUSCULAR HGB CONC 34 g/dL (32.5-36.3); MEAN CORPUSCULAR VOLUME 94.3 fL (73.0-96.2); MONOCYTES % (AUTO) 13.1 % (0.0-11.0); NEUTROPHILS # (AUTO) 5.8 K/uL (1.8-8.9); NEUTROPHILS % (AUTO) 75.1 % (38.5-71.5); PLATELET COUNT (AUTO) 98 K/uL (152-348); RED BLOOD CELL COUNT(AUTO) 4.77 MIL/uL (4.06-5.63); RED CELL DISTRIBUTION WIDTH 15.1 % (12.1-16.2); WHITE BLOOD COUNT (AUTO) 7.8 K/uL (3.6-10.2)
[2023-07-01 04:29] LABS: *BILIRUBIN,URIN NEGATIVE (NEGATIVE); *BLOOD, URINE NEGATIVE (NEGATIVE); *CLARITY,URINE CLEAR (CLEAR); *COLOR,URINE YELLOW (YELLOW); *KETONES,URINE 4+ (NEGATIVE); *PROTEIN,URINE 2+ (NEGATIVE); LEUKOCYTE ESTERASE ,URINE NEGATIVE (NEGATIVE); NITRITE, URINE NEGATIVE (NEGATIVE); PH,URINE 6.5 (5.0-8.0); UGLUCOSE NEGATIVE (NEGATIVE)
[2023-07-01 04:34] LABS: DIFFERENTIAL COMMENT 1
[2023-07-01 04:45] LABS: CALCIUM 8.8 mg/dL (8.5-10.1); CARBON DIOXIDE 20 mmol/L (21-32); CHLORIDE 104 mmol/L (98-107); CREATININE 1.2 mg/dL (0.6-1.3); GLUCOSE 129 mg/dL (74-106); POTASSIUM 2.9 mmol/L (3.5-5.1); SODIUM SERUM 141 mmol/L (136-145); UREA NITROGEN, BLOOD 9 mg/dL (7-18)
[2023-07-01 04:51] LABS: *AMPHETAMINE, URINE NEGATIVE (NEGATIVE); *BARBITURATE, URINE NEGATIVE (NEGATIVE); *BENZODIAZEPINE, URINE NEGATIVE (NEGATIVE); *CANNABINOID, URINE POSITIVE (NEGATIVE); *COCCAINE, URINE NEGATIVE (NEGATIVE); *OPIATE, URINE POSITIVE (NEGATIVE); *PHENCYCLIDINE SCREEN,URINE NEGATIVE (NEGATIVE)
[2023-07-01 04:52] LABS: ETHANOL < 3 MG/DL (0-10)
[2023-07-01 04:55] LABS: FENTANYL, URINE NEGATIVE (NEGATIVE)
[2023-07-01 05:02] LABS: ALANINE AMINOTRANSFERASE 21 U/L (16-63); ALBUMIN 3.8 g/dL (3.4-5.0); ALKALINE PHOSPHATASE 57 U/L (50-136); ASPARTATE AMINOTRANSFERASE 28 U/L (15-37); BILIRUBIN,TOTAL 0.7 mg/dL (0.2-1.0); NT-PRO BNP 49 pg/mL (0-125); TOTAL PROTEIN, SERUM 7.8 g/dL (6.4-8.2)
[2023-07-01] MEDS ORDERED: HYDROMORPHONE 1 MG/1 ML DISP.SYRIN IV ONE (05:45)
[2023-07-01] MEDS ORDERED: ACETAMINOPHEN 650 MG/20.3 ML LIQUID UDC PO ONE (05:45)
[2023-07-01] MEDS ORDERED: ACETAMINOPHEN 325 MG TABLET ONE (05:51)
[2023-07-01] MEDS ORDERED: HYDROMORPHONE 1 MG/1 ML DISP.SYRIN ONE ×2 (05:51→18:09)
[2023-07-01] MEDS ORDERED: POTASSIUM CHLORIDE 0 ML ONE (07:51)
[2023-07-01] MEDS: POTASSIUM CHLORIDE 50 ML IV SCH ×4 (08:00→10:56)
[2023-07-01] MEDS ORDERED: MAGNESIUM HYDROXIDE 30 ML LIQUID UDC ONE (08:12)
[2023-07-01] MEDS ORDERED: CYANOCOBALAMIN 1000 MCG/ML VIAL ONE (08:12)
[2023-07-01] MEDS ORDERED: POTASSIUM CHLORIDE 150 ML ONE (08:28)
[2023-07-01] MEDS ORDERED: POTASSIUM BICARBONATE/CIT AC 25 MEQ TABLET.EFF ONE (10:57)
[2023-07-01] MEDS ORDERED: POTASSIUM BICARBONATE/CIT AC 25 MEQ TABLET.EFF PO ONE (11:00)
[2023-07-01] MEDS ORDERED: TEMAZEPAM 7.5 MG CAPSULE PO PRN (14:00)
[2023-07-01] MEDS ORDERED: REMEDY ESSENTIAL ZINC PASTE 113 GM TP PRN (14:00)
[2023-07-01] MEDS ORDERED: MAGNESIUM HYDROXIDE 30 ML LIQUID UDC PO PRN (14:00)
[2023-07-01] MEDS ORDERED: METRONIDAZOLE 500 MG/NS 100ML 100 ML IV ONE (14:38)
[2023-07-01] MEDS: METRONIDAZOLE 500 MG/NS 100ML 500 MG in PREMIXED 1 EACH IV SCH ×2 (14:43→23:10)
[2023-07-01] MEDS: CIPROFLOXACIN IV 400 MG in PREMIXED 1 EACH IV SCH ×2 (15:00→15:17)
[2023-07-01] MEDS ORDERED: CEFTRIAXONE /D5W 50ML IVPB **ER PYXIS IV ONE (15:28)
[2023-07-01] MEDS: CEFTRIAXONE 1 G in IV DEXTROSE 5% 50 ML IV SCH (15:34)
[2023-07-01] MEDS ORDERED: CLONAZEPAM 1 MG TABLET PO PRN (17:30)
[2023-07-01] MEDS ORDERED: DICYCLOMINE HCL LIQ 10 MG/5 ML UDC ONE (18:08)
[2023-07-01] MEDS: HYDROMORPHONE 1 MG/1 ML DISP.SYRIN IV PRN (18:14)
[2023-07-01] MEDS: DICYCLOMINE HCL 10 MG CAPSULE PO SCH ×2 (18:14→23:10)
[2023-07-01 20:20] VITALS: BP 116/79; TEMP 100.7; O2SAT 97
[2023-07-01] MEDS: ENOXAPARIN SODIUM 40 MG/0.4 ML DISP.SYRIN SQ SCH (21:00)
[2023-07-01] MEDS: IV 1/2NS 1000 ML 1,000 ML IV PRN (23:32)
[2023-07-02] MEDS: HYDROMORPHONE 1 MG/1 ML DISP.SYRIN IV PRN ×4 (00:13→19:59)
[2023-07-02] MEDS: ONDANSETRON 4 MG/2 ML VIAL IV PRN ×4 (00:14→19:58)
[2023-07-02 04:00] VITALS: BP 114/72; TEMP 100.3; O2SAT 97
[2023-07-02] MEDS: PANTOPRAZOLE SODIUM 40 MG TABLET.DR PO SCH (06:12)
[2023-07-02] MEDS: METRONIDAZOLE 500 MG/NS 100ML 500 MG in PREMIXED 1 EACH IV SCH ×3 (06:12→21:27)
[2023-07-02] MEDS: DICYCLOMINE HCL 10 MG CAPSULE PO SCH ×3 (06:12→17:19)
[2023-07-02 07:48] LABS: BASOPHILS % (AUTO) 0.5 % (0.0-2.0); EOSINOPHILS % (AUTO) 0.1 % (0.0-7.0); HEMATOCRIT 40.4 % (36.7-47.1); HEMOGLOBIN 13.7 g/dL (12.5-16.3); MEAN CORPUSCULAR HEMOGLOBIN 32.3 uug (23.8-33.4); MEAN CORPUSCULAR HGB CONC 34 g/dL (32.5-36.3); MEAN CORPUSCULAR VOLUME 95.1 fL (73.0-96.2); MONOCYTES # (AUTO) 0.8 K/uL (0.1-1.30); MONOCYTES % (AUTO) 12.3 % (0.0-11.0); NEUTROPHILS # (AUTO) 4.7 K/uL (1.8-8.9); NEUTROPHILS % (AUTO) 71.1 % (38.5-71.5); PLATELET COUNT (AUTO) 92 K/uL (152-348); RED BLOOD CELL COUNT(AUTO) 4.25 MIL/uL (4.06-5.63); RED CELL DISTRIBUTION WIDTH 15.4 % (12.1-16.2); WHITE BLOOD COUNT (AUTO) 6.5 K/uL (3.6-10.2)
[2023-07-02 08:02] LABS: CALCIUM 7.4 mg/dL (8.5-10.1); CREATININE 0.9 mg/dL (0.6-1.3); PHOSPHOROUS 2.7 mg/dL (2.5-4.9); POTASSIUM 3.4 mmol/L (3.5-5.1)
[2023-07-02 08:28] LABS: MAGNESIUM 1.4 mg/dL (1.8-2.4)
[2023-07-02 08:36] LABS: DIFFERENTIAL COMMENT 1
[2023-07-02] MEDS: PAROXETINE HCL 20 MG TABLET PO SCH (08:36)
[2023-07-02] MEDS ORDERED: POTASSIUM CHLORIDE 20 MEQ POWDER PACKET PO ONE (09:00)
[2023-07-02] MEDS ORDERED: Bictegrav/Emtricit/Tenofov Ala (Biktarvy 50-200-25 mg Ta PO SCH (09:00)
[2023-07-02] MEDS: MAGNESIUM SULFATE/D5W 100 ML IV SCH ×4 (10:11→13:18)
[2023-07-02] MEDS: ACETAMINOPHEN 325 MG TABLET PO PRN (10:34)
[2023-07-02 11:24] VITALS: BP 124/86; TEMP 102.4; O2SAT 99
[2023-07-02 14:58] VITALS: BP 103/60; TEMP 99.2; O2SAT 96
[2023-07-02] MEDS: CEFTRIAXONE 1 G in IV DEXTROSE 5% 50 ML IV SCH (16:24)
[2023-07-02] MEDS: AZITHROMYCIN 250 MG TABLET PO SCH (17:19)
[2023-07-02 20:00] VITALS: BP 115/78; TEMP 100.1; O2SAT 96
[2023-07-02] MEDS: IV 1/2NS 1000 ML 1,000 ML IV PRN (20:03)
[2023-07-02] MEDS: ENOXAPARIN SODIUM 40 MG/0.4 ML DISP.SYRIN SQ SCH ×2 (21:00→21:29)
[2023-07-03] MEDS: DICYCLOMINE HCL 10 MG CAPSULE PO SCH ×4 (00:44→17:23)
[2023-07-03] MEDS: ONDANSETRON 4 MG/2 ML VIAL IV PRN ×3 (03:01→20:47)
[2023-07-03] MEDS: HYDROMORPHONE 1 MG/1 ML DISP.SYRIN IV PRN ×3 (03:01→20:47)
[2023-07-03 04:00] VITALS: BP 134/75; TEMP 99.2; O2SAT 96
[2023-07-03] MEDS: METRONIDAZOLE 500 MG/NS 100ML 500 MG in PREMIXED 1 EACH IV SCH ×3 (06:20→21:56)
[2023-07-03] MEDS: PANTOPRAZOLE SODIUM 40 MG TABLET.DR PO SCH (06:20)
[2023-07-03 07:34] LABS: BASOPHILS % (AUTO) 0.2 % (0.0-2.0); HEMATOCRIT 39.6 % (36.7-47.1); HEMOGLOBIN 13.4 g/dL (12.5-16.3); LYMPHOCYTES % (AUTO) 17.2 % (20.5-51.5); MEAN CORPUSCULAR HEMOGLOBIN 31.8 uug (23.8-33.4); MEAN CORPUSCULAR HGB CONC 34 g/dL (32.5-36.3); MEAN CORPUSCULAR VOLUME 94.2 fL (73.0-96.2); MONOCYTES # (AUTO) 0.8 K/uL (0.1-1.30); MONOCYTES % (AUTO) 14.1 % (0.0-11.0); NEUTROPHILS % (AUTO) 68.5 % (38.5-71.5); PLATELET COUNT (AUTO) 97 K/uL (152-348); RED BLOOD CELL COUNT(AUTO) 4.21 MIL/uL (4.06-5.63); RED CELL DISTRIBUTION WIDTH 15.2 % (12.1-16.2); WHITE BLOOD COUNT (AUTO) 5.8 K/uL (3.6-10.2)
[2023-07-03 07:48] LABS: DIFFERENTIAL COMMENT 1
[2023-07-03 07:50] LABS: CALCIUM 8.3 mg/dL (8.5-10.1); CREATININE 0.9 mg/dL (0.6-1.3); MAGNESIUM 1.8 mg/dL (1.8-2.4); PHOSPHOROUS 3.3 mg/dL (2.5-4.9); POTASSIUM 3.2 mmol/L (3.5-5.1)
[2023-07-03 08:10] VITALS: BP 120/81; TEMP 99.8; O2SAT 98
[2023-07-03] MEDS: PAROXETINE HCL 20 MG TABLET PO SCH (08:30)
[2023-07-03] MEDS: ACETAMINOPHEN 325 MG TABLET PO PRN ×2 (08:30→20:07)
[2023-07-03] MEDS: POTASSIUM CHLORIDE 20 MEQ POWDER PACKET GT SCH ×2 (11:08→12:38)
[2023-07-03 11:37] VITALS: BP 118/61; TEMP 98.3; O2SAT 96
[2023-07-03] MEDS: IV 1/2NS 1000 ML 1,000 ML IV PRN (12:39)
[2023-07-03] MEDS: BIKTARVY PO SCH (15:31)
[2023-07-03 16:04] VITALS: BP 119/84; TEMP 99.9; O2SAT 98
[2023-07-03] MEDS: CEFTRIAXONE 1 G in IV DEXTROSE 5% 50 ML IV SCH (17:00)
[2023-07-03] MEDS: AZITHROMYCIN 250 MG TABLET PO SCH (17:22)
[2023-07-03] MEDS: ENOXAPARIN SODIUM 40 MG/0.4 ML DISP.SYRIN SQ SCH (20:06)
[2023-07-03 20:15] VITALS: BP 120/84; TEMP 100.1; O2SAT 94
[2023-07-03 23:53] VITALS: TEMP 98.6; O2SAT 95
[2023-07-04] MEDS: DICYCLOMINE HCL 10 MG CAPSULE PO SCH ×5 (00:06→23:45)
[2023-07-04] MEDS: ONDANSETRON 4 MG/2 ML VIAL IV PRN ×2 (03:44→11:18)
[2023-07-04 04:20] VITALS: BP 137/90; TEMP 98.8; O2SAT 92
[2023-07-04] MEDS: HYDROMORPHONE 1 MG/1 ML DISP.SYRIN IV PRN (04:47)
[2023-07-04] MEDS: IV 1/2NS 1000 ML 1,000 ML IV PRN (04:48)
[2023-07-04] MEDS: METRONIDAZOLE 500 MG/NS 100ML 500 MG in PREMIXED 1 EACH IV SCH ×3 (05:53→21:33)
[2023-07-04] MEDS: PANTOPRAZOLE SODIUM 40 MG TABLET.DR PO SCH (06:13)
[2023-07-04 07:23] LABS: CREATININE 0.8 mg/dL (0.6-1.3); MAGNESIUM 1.9 mg/dL (1.8-2.4); PHOSPHOROUS 2.6 mg/dL (2.5-4.9); POTASSIUM 3.4 mmol/L (3.5-5.1)
[2023-07-04 07:40] LABS: BASOPHILS % (AUTO) 0.2 % (0.0-2.0); DIFFERENTIAL COMMENT 0; EOSINOPHILS % (AUTO) 0.6 % (0.0-7.0); HEMATOCRIT 38.8 % (36.7-47.1); LYMPHOCYTES # (AUTO) 0.9 K/uL (0.8-4.8); LYMPHOCYTES % (AUTO) 20.8 % (20.5-51.5); MEAN CORPUSCULAR HEMOGLOBIN 31.6 uug (23.8-33.4); MEAN CORPUSCULAR HGB CONC 34 g/dL (32.5-36.3); MEAN CORPUSCULAR VOLUME 94.1 fL (73.0-96.2); MONOCYTES # (AUTO) 0.7 K/uL (0.1-1.30); MONOCYTES % (AUTO) 17.2 % (0.0-11.0); NEUTROPHILS # (AUTO) 2.6 K/uL (1.8-8.9); NEUTROPHILS % (AUTO) 61.2 % (38.5-71.5); PLATELET COUNT (AUTO) 101 K/uL (152-348); RED BLOOD CELL COUNT(AUTO) 4.12 MIL/uL (4.06-5.63); RED CELL DISTRIBUTION WIDTH 15.7 % (12.1-16.2); WHITE BLOOD COUNT (AUTO) 4.2 K/uL (3.6-10.2)
[2023-07-04] MEDS: PAROXETINE HCL 20 MG TABLET PO SCH (09:27)
[2023-07-04] MEDS: BIKTARVY PO SCH (09:27)
[2023-07-04 09:46] VITALS: BP 138/85; TEMP 98.8; O2SAT 95
[2023-07-04] MEDS ORDERED: HYDROCODONE/APAP 5-325MG TABLET PO PRN (11:45)
[2023-07-04 12:10] LABS: BAND % (MANUAL) 2 % (0-10); LYMPHOCYTES % (MANUAL) 23 % (20-40); MONOCYTES % (MANUAL) 16 % (2-10); NEUTROPHILS % (MANUAL) 57 % (42-75); REACTIVE LYMPHOCYTES 2 % (0-0)
[2023-07-04 12:11] LABS: ANISOCYTOSIS 1+; PLATELET ESTIMATE DECREASED
[2023-07-04] MEDS ORDERED: POTASSIUM CHLORIDE 20 MEQ POWDER PACKET GT ONE (14:00)
[2023-07-04] MEDS: CEFTRIAXONE 1 G in IV DEXTROSE 5% 50 ML IV SCH (15:59)
[2023-07-04] MEDS: AZITHROMYCIN 250 MG TABLET PO SCH (17:49)
[2023-07-04] MEDS: ENOXAPARIN SODIUM 40 MG/0.4 ML DISP.SYRIN SQ SCH (21:00)
[2023-07-05 06:00] VITALS: BP 120/80; TEMP 98; O2SAT 98
[2023-07-05] MEDS: METRONIDAZOLE 500 MG/NS 100ML 500 MG in PREMIXED 1 EACH IV SCH (06:00)
[2023-07-05] MEDS: DICYCLOMINE HCL 10 MG CAPSULE PO SCH ×2 (06:10→12:22)
[2023-07-05] MEDS: PANTOPRAZOLE SODIUM 40 MG TABLET.DR PO SCH (06:10)
[2023-07-05 07:14] LABS: BASOPHILS % (AUTO) 0.2 % (0.0-2.0); EOSINOPHILS % (AUTO) 0.3 % (0.0-7.0); HEMATOCRIT 39.9 % (36.7-47.1); HEMOGLOBIN 13.6 g/dL (12.5-16.3); LYMPHOCYTES % (AUTO) 22.1 % (20.5-51.5); MEAN CORPUSCULAR HEMOGLOBIN 31.7 uug (23.8-33.4); MEAN CORPUSCULAR HGB CONC 34 g/dL (32.5-36.3); MONOCYTES # (AUTO) 0.9 K/uL (0.1-1.30); MONOCYTES % (AUTO) 21.2 % (0.0-11.0); NEUTROPHILS # (AUTO) 2.5 K/uL (1.8-8.9); NEUTROPHILS % (AUTO) 56.2 % (38.5-71.5); PLATELET COUNT (AUTO) 120 K/uL (152-348); RED BLOOD CELL COUNT(AUTO) 4.29 MIL/uL (4.06-5.63); RED CELL DISTRIBUTION WIDTH 15.4 % (12.1-16.2); WHITE BLOOD COUNT (AUTO) 4.5 K/uL (3.6-10.2)
[2023-07-05 07:24] LABS: CREATININE 0.8 mg/dL (0.6-1.3); MAGNESIUM 1.5 mg/dL (1.8-2.4); PHOSPHOROUS 2.5 mg/dL (2.5-4.9)
[2023-07-05 07:34] LABS: DIFFERENTIAL COMMENT 1
[2023-07-05 07:45] LABS: NEUTROPHILS % (MANUAL) 0 % (42-75)
[2023-07-05 07:46] LABS: LYMPHOCYTES % (MANUAL) 0 % (20-40)
[2023-07-05 08:40] VITALS: BP 137/88; TEMP 98.5; O2SAT 95
[2023-07-05] MEDS: PAROXETINE HCL 20 MG TABLET PO SCH (08:56)
[2023-07-05] MEDS ORDERED: LORAZEPAM 0.5 MG TABLET PO PRN (10:45)
[2023-07-05] MEDS ORDERED: LORAZEPAM 2 MG/1 ML VIAL IV ONE (11:15)
[2023-07-05] MEDS ORDERED: MAGNESIUM OXIDE 400 MG TABLET PO ONE ×2 (11:15→11:30)
[2023-07-05] MEDS: BIKTARVY PO SCH (12:04)
[2023-07-05] MEDS ORDERED: DICY10CA13 PO (12:44)
[2023-07-05] MEDS ORDERED: CEFD300C3 PO (12:44)
[2023-07-05] MEDS ORDERED: ONDA4TAB11 PO (12:44)
[2023-07-05] MEDS ORDERED: HYDR-4209 PO (12:44)
[2023-07-05] MEDS ORDERED: METR500T PO (12:44)
[2023-07-05] MEDS: POTASSIUM CHLORIDE 10 MEQ TAB.PRT.SR PO SCH ×2 (12:46→14:09)
[2023-07-05] MEDS ORDERED: METRONIDAZOLE 500 MG TABLET PO SCH (14:00)
[2023-07-05 14:26] VITALS: BP 139/91; TEMP 97.8
== END 2023-07-05 15:00 | disposition home or self-care (01) | DRG 248 ==
LOC: ER 03:36 → UNDOADMIN 11:21 → TRANSITION 11:21 → MEDSURG3 20:01 → MED 07-04 08:04
PROVIDERS: ADMIT Nurse Practitioner Family; ATTEND Nurse Practitioner Family
DX: A04.9 Bacterial intestinal infection, unspecified (principal); J69.0 Pneumonitis due to inhalation of food and vomit; D69.6 Thrombocytopenia, unspecified; M48.56XA Collapsed vertebra, not elsewhere classified, lumbar region, initial encounter for fracture; E86.0 Dehydration; E87.6 Hypokalemia; Z92.21 Personal history of antineoplastic chemotherapy; Z85.72 Personal history of non-Hodgkin lymphomas; N20.0 Calculus of kidney; Z83.3 Family history of diabetes mellitus; Z80.9 Family history of malignant neoplasm, unspecified; F41.9 Anxiety disorder, unspecified; Z79.899 Other long term (current) drug therapy; Z86.718 Personal history of other venous thrombosis and embolism
CPT/HCPCS: 36415; 70030-TC; 71045; 83605; 83735; 84100; 84484; 85025; 86803; 87040; 87278; 93005; A4663; G0378; G0480; J0696; J0744; J1170; J1650; J2060; J2270; J2405; J3420; J3475; J3480; J3490; J7040; Q0144

== ENCOUNTER 2025-04-23 19:09 | Inpatient (IN) | payer OTHER ==
[~2025-04-23] VITALS: Ht 177.8 cm; Wt 65.8 kg
[~2025-04-23 19:09] MED LIST changes: -ACET1TAB23 PO; +CEFD300C3 PO; +DICY10CA13 PO; +HYDR-4209 PO; -LEVO500T90 PO; -LOPE2CAP40 PO; +METR500T PO; +ONDA4TAB11 PO; -ONDA4TAB5 PO
[2025-04-23 20:33] LABS: CREATININE 1.0 mg/dL (0.6-1.3); SODIUM SERUM 142.0 mmol/L (136-145); UREA NITROGEN, BLOOD 20.0 mg/dL (7-18)
[2025-04-23 20:40] LABS: ASPARTATE AMINOTRANSFERASE 13.0 U/L (15-37); TOTAL PROTEIN, SERUM 6.6 g/dL (6.4-8.2)
[2025-04-23 21:09] LABS: PLATELET COUNT (AUTO) 165 K/uL (152-348); RED CELL DISTRIBUTION WIDTH 15.3 % (12.1-16.2); WHITE BLOOD COUNT (AUTO) 7.4 K/uL (3.6-10.2)
[2025-04-23 21:13] LABS: RED BLOOD CELL COUNT(AUTO) 2.22 MIL/uL (4.06-5.63)
[2025-04-23 22:19] LABS: *BILIRUBIN,URIN NEGATIVE (NEGATIVE); *BLOOD, URINE 3+ (NEGATIVE); *CLARITY,URINE TURBID (CLEAR); *COLOR,URINE RED (YELLOW); *KETONES,URINE NEGATIVE (NEGATIVE); *UROBILINOGEN,URINE 0.2 E.U./dl (NORMAL); LEUKOCYTE ESTERASE ,URINE NEGATIVE (NEGATIVE); NITRITE, URINE NEGATIVE (NEGATIVE); UGLUCOSE NEGATIVE (NEGATIVE)
[2025-04-23 22:23] LABS: *PROTEIN,URINE 3+ (NEGATIVE)
[2025-04-23] MEDS ORDERED: MAGNESIUM HYDROXIDE 30 ML LIQUID UDC PO PRN (23:00)
[2025-04-23] MEDS ORDERED: DICYCLOMINE HCL 10 MG CAPSULE PO PRN (23:00)
[2025-04-23] MEDS ORDERED: ACETAMINOPHEN 325 MG TABLET PO PRN (23:00)
[2025-04-23] MEDS ORDERED: CLONAZEPAM 1 MG TABLET PO PRN (23:00)
[2025-04-23 23:10] LABS: SQUAMOUS EPITHELIAL CELL,UR NONE SEEN /HPF (NONE SEEN)
[2025-04-24] VITALS (17 sets, daily range): BP systolic 89–136; BP diastolic 49–87; TEMP 97.5–98.1; O2SAT 97–100
[2025-04-24] MEDS ORDERED: HYDROCODONE/APAP 5-325MG TABLET ONE (02:49)
[2025-04-24] MEDS: HYDROCODONE/APAP 5-325MG TABLET PO PRN (02:52)
[2025-04-24 05:25] LABS: PLATELET COUNT (AUTO) 152 K/uL (152-348); RED BLOOD CELL COUNT(AUTO) 3.03 MIL/uL (4.06-5.63); RED CELL DISTRIBUTION WIDTH 15.0 % (12.1-16.2); WHITE BLOOD COUNT (AUTO) 7.0 K/uL (3.6-10.2)
[2025-04-24] MEDS ORDERED: MORPHINE SULFATE 2 MG/1 ML DISP.SYRIN IV ONE (05:30)
[2025-04-24] MEDS: IV NS 1000 ML 1,000 ML IV PRN (05:32)
[2025-04-24 05:34] LABS: CREATININE 1.0 mg/dL (0.6-1.3); SODIUM SERUM 141.0 mmol/L (136-145); UREA NITROGEN, BLOOD 18.0 mg/dL (7-18)
[2025-04-24] MEDS: HYDROMORPHONE 1 MG/1 ML DISP.SYRIN IV ONE (05:45)
[2025-04-24] MEDS: PANTOPRAZOLE SODIUM 40 MG TABLET.DR PO SCH (06:33)
[2025-04-24] MEDS: MAGNESIUM OXIDE 400 MG TABLET PO ONE (10:05)
[2025-04-24] MEDS: [UNRECOGNIZED DRUG - OTHER] PO SCH (12:52)
[2025-04-24] MEDS ORDERED: OMEP20TA5 PO (13:18)
[2025-04-24] MEDS ORDERED: ONDA4TAB11 PO (13:19)
[2025-04-24] MEDS ORDERED: ONDANSETRON HCL 4 MG TABLET PO PRN (15:45)
[2025-04-24] MEDS ORDERED: KETOROLAC TROMETHAMINE 10 MG TABLET PO ONE (15:45)
[2025-04-24] MEDS: ONDANSETRON 4 MG/2 ML VIAL IV PRN (16:02)
[2025-04-24] MEDS: KETOROLAC TROMETHAMINE 10 MG TABLET PO ONE (16:40)
[2025-04-24] MEDS ORDERED: IV NORMAL SALINE 250 ML IV ONE (17:06)
[2025-04-24] MEDS ORDERED: SWABABLE VALVE TRANSFER SET EA MC ONE (17:06)
[2025-04-24] MEDS ORDERED: IOHEXOL 300MG/ML 100 ML INFUS..BTL ONE (17:06)
[2025-04-24] MEDS ORDERED: HYDROCODONE/APAP 10-325 MG TABLET PO PRN (19:00)
[2025-04-25] VITALS (12 sets, daily range): BP systolic 88–137; BP diastolic 63–91; TEMP 97.5–98.4; O2SAT 96–100
[2025-04-25 05:19] LABS: *OCCULT BLOOD STOOL NEGATIVE (NEGATIVE)
[2025-04-25] MEDS: HYDROMORPHONE 1 MG/1 ML DISP.SYRIN IV ONE (09:25)
[2025-04-25] MEDS: PAROXETINE HCL 20 MG TABLET PO SCH (10:42)
[2025-04-25] MEDS ORDERED: OXYCODONE HCL 5 MG TABLET PO PRN (13:15)
[2025-04-25] MEDS: HYDROMORPHONE 1 MG/1 ML DISP.SYRIN IV PRN (16:29)
[2025-04-25] MEDS: SOD FERRIC GLUC COMPLX/SUCROSE 125 MG in IV NORMAL SALINE 100 ML IV SCH (20:01)
[2025-04-26] VITALS (11 sets, daily range): BP systolic 110–131; BP diastolic 71–87; TEMP 97.8–98.5; O2SAT 96–100
[2025-04-26 07:13] LABS: PLATELET COUNT (AUTO) 119 K/uL (152-348); RED BLOOD CELL COUNT(AUTO) 2.82 MIL/uL (4.06-5.63); RED CELL DISTRIBUTION WIDTH 15.3 % (12.1-16.2); WHITE BLOOD COUNT (AUTO) 6.9 K/uL (3.6-10.2)
[2025-04-26 07:28] LABS: CREATININE 0.9 mg/dL (0.6-1.3); SODIUM SERUM 142.0 mmol/L (136-145); UREA NITROGEN, BLOOD 11.0 mg/dL (7-18)
[2025-04-26] MEDS ORDERED: FENTANYL CITRATE 100 MCG/2 ML AMPUL ONE (19:37)
[2025-04-26] MEDS ORDERED: MIDAZOLAM HCL 2 MG/2 ML VIAL ONE (19:38)
[2025-04-27 05:43] VITALS: BP 106/52; TEMP 98; O2SAT 98
[2025-04-27 07:25] LABS: PLATELET COUNT (AUTO) 125 K/uL (152-348); RED BLOOD CELL COUNT(AUTO) 3.09 MIL/uL (4.06-5.63); RED CELL DISTRIBUTION WIDTH 15.4 % (12.1-16.2); WHITE BLOOD COUNT (AUTO) 6.1 K/uL (3.6-10.2)
[2025-04-27 07:40] LABS: CREATININE 1.0 mg/dL (0.6-1.3); SODIUM SERUM 142.0 mmol/L (136-145); UREA NITROGEN, BLOOD 8.0 mg/dL (7-18)
[2025-04-27 14:33] VITALS: BP 129/76; TEMP 98.5; O2SAT 100
[2025-04-27 16:34] VITALS: BP 102/58; TEMP 97.9; O2SAT 100
[2025-04-27 19:00] VITALS: BP 110/71; TEMP 99.1; O2SAT 100
[2025-04-28 04:00] VITALS: BP 107/69; TEMP 98.3; O2SAT 97
[2025-04-28 07:32] LABS: PLATELET COUNT (AUTO) 129 K/uL (152-348); RED BLOOD CELL COUNT(AUTO) 3.25 MIL/uL (4.06-5.63); RED CELL DISTRIBUTION WIDTH 15.4 % (12.1-16.2); WHITE BLOOD COUNT (AUTO) 7.8 K/uL (3.6-10.2)
[2025-04-28 07:48] LABS: CREATININE 1.0 mg/dL (0.6-1.3); SODIUM SERUM 144.0 mmol/L (136-145); UREA NITROGEN, BLOOD 10.0 mg/dL (7-18)
[2025-04-28 09:03] LABS: PLATELET COUNT (AUTO) 123 K/uL (152-348); RED BLOOD CELL COUNT(AUTO) 3.15 MIL/uL (4.06-5.63); RED CELL DISTRIBUTION WIDTH 15.5 % (12.1-16.2); WHITE BLOOD COUNT (AUTO) 7.7 K/uL (3.6-10.2)
[2025-04-28 11:28] VITALS: BP 124/78; TEMP 98.3; O2SAT 99
[2025-04-28] MEDS: LIDOCAINE 5% PATCH TD SCH (13:47)
[2025-04-28 14:57] LABS: IRON, SERUM 39.0 ug/dL (50-175)
[2025-04-28 15:20] LABS: LACTATE DEHYDROGENASE 168.0 U/L (85-227)
[2025-04-28 16:00] LABS: *RHEUMATOID FACTOR SCREEN NEGATIVE (NEGATIVE)
[2025-04-28 16:01] VITALS: BP 107/71; TEMP 98.4; O2SAT 100
[2025-04-28 19:00] VITALS: BP 111/71; TEMP 99.1; O2SAT 97
[2025-04-28] MEDS ORDERED: CEFAZOLIN 1 G VIAL ONE (19:09)
[2025-04-28] MEDS ORDERED: GLYCOPYRROLATE 0.2 MG/ML VIAL ONE (19:09)
[2025-04-28] MEDS ORDERED: PROPOFOL 200 MG/20 ML BOTTLE ONE (19:09)
[2025-04-28] MEDS ORDERED: DEXAMETHASONE SOD PHOSPHATE 4 MG INJ ONE (19:09)
[2025-04-28] MEDS ORDERED: EPHEDRINE SULFATE 50 MG/ML AMPUL ONE (19:09)
[2025-04-28] MEDS ORDERED: LIDOCAINE-MPF 2% 5 ML VIAL ONE (19:09)
[2025-04-28] MEDS ORDERED: ONDANSETRON 4 MG/2 ML VIAL ONE (19:09)
[2025-04-29 04:00] VITALS: BP 111/73; TEMP 98.1; O2SAT 100
[2025-04-29] MEDS ORDERED: SWABABLE VALVE TRANSFER SET EA MC ONE (07:22)
[2025-04-29] MEDS ORDERED: IOHEXOL 300MG/ML 100 ML INFUS..BTL ONE (07:22)
[2025-04-29] MEDS ORDERED: IV NORMAL SALINE 250 ML IV ONE (07:23)
[2025-04-29 08:07] LABS: HEPATITIS B SURFACE AB, QUAL Reactive (.); HEPATITIS B SURFACE AG Negative (Negative); HEPATITIS C VIRUS ANTIBODY Non Reactive (Non Reactive)
[2025-04-29 09:08] LABS: CARCINOEMBRYONIC AG (CEA) 2.8 ng/mL (0.0-4.7)
[2025-04-29 09:55] LABS: PLATELET COUNT (AUTO) 151 K/uL (152-348); RED BLOOD CELL COUNT(AUTO) 3.80 MIL/uL (4.06-5.63); RED CELL DISTRIBUTION WIDTH 15.4 % (12.1-16.2); WHITE BLOOD COUNT (AUTO) 9.6 K/uL (3.6-10.2)
[2025-04-29 10:10] LABS: FOLATE (FOLIC ACID), SERUM 10.3 ng/mL (>3.0)
[2025-04-29 10:55] VITALS: BP 110/70; TEMP 99.1; O2SAT 98
[2025-04-29 11:08] LABS: *IMMUNOGLOBULIN G, SERUM 1186 mg/dL (603-1613); IMMUNOGLOBULIN A, SERUM 283 mg/dL (90-386); IMMUNOGLOBULIN M, SERUM 62 mg/dL (20-172)
[2025-04-29 12:08] LABS: *ANTI-SCLERODERMA-70 AB <0.2 AI (0.0-0.9); *RNP ANTIBODIES 0.2 AI (0.0-0.9); *SJOGREN'S ANTI-SS-A <0.2 AI (0.0-0.9); *SJOGREN'S ANTI-SS-B <0.2 AI (0.0-0.9); *SMITH ANTIBODIES <0.2 AI (0.0-0.9); ANTI-DNA(DS) AB, QN <1 IU/mL (0-9); ANTI-NUCLEAR AB DIRECT Negative (Negative)
[2025-04-29 16:03] VITALS: BP 104/66; TEMP 98.7; TEMP 99.1; O2SAT 100
[2025-04-29 20:32] VITALS: BP 104/66; TEMP 97.7; O2SAT 99
[2025-04-30 06:35] VITALS: BP 125/78; TEMP 97.8; O2SAT 100
[2025-04-30 06:48] LABS: PLATELET COUNT (AUTO) 110 K/uL (152-348); RED BLOOD CELL COUNT(AUTO) 3.11 MIL/uL (4.06-5.63); RED CELL DISTRIBUTION WIDTH 15.8 % (12.1-16.2); WHITE BLOOD COUNT (AUTO) 7.2 K/uL (3.6-10.2)
[2025-04-30 10:59] VITALS: BP 119/76; TEMP 98.4; O2SAT 99
[2025-04-30 14:37] VITALS: BP 122/84; TEMP 98.7; O2SAT 100
[2025-04-30 19:51] VITALS: BP 113/69; TEMP 98.1; O2SAT 98
[2025-05-01 04:09] LABS: FREE KAPPA LT CHAINS SERUM 32.6 mg/L (3.3-19.4); FREE LAMBDA LT CHAIN SERUM 30.0 mg/L (5.7-26.3); KAPPA/LAMBDA RATIO SERUM 1.09 (0.26-1.65)
[2025-05-01 05:29] VITALS: BP 144/81; TEMP 97.9; O2SAT 96
[2025-05-01 07:10] LABS: PLATELET COUNT (AUTO) 112 K/uL (152-348); RED BLOOD CELL COUNT(AUTO) 3.17 MIL/uL (4.06-5.63); RED CELL DISTRIBUTION WIDTH 16.0 % (12.1-16.2); WHITE BLOOD COUNT (AUTO) 6.9 K/uL (3.6-10.2)
[2025-05-01 11:35] VITALS: BP 125/81; TEMP 98.8; O2SAT 99
[2025-05-01 16:29] VITALS: BP 135/92; TEMP 97.8; O2SAT 98
[2025-05-01] MEDS ORDERED: GADOTERATE MEGLUMINE 10 MMOL/20 ML VIAL IV ONE (16:47)
[2025-05-01 19:54] VITALS: BP 100/62; TEMP 98.4; O2SAT 97
[2025-05-02 06:58] LABS: PLATELET COUNT (AUTO) 109 K/uL (152-348); RED BLOOD CELL COUNT(AUTO) 3.35 MIL/uL (4.06-5.63); RED CELL DISTRIBUTION WIDTH 16.5 % (12.1-16.2); WHITE BLOOD COUNT (AUTO) 6.0 K/uL (3.6-10.2)
[2025-05-02 07:10] LABS: IRON, SERUM 59 ug/dL (50-175)
[2025-05-02 07:20] VITALS: BP 123/89; TEMP 97.8; O2SAT 96
[2025-05-02 12:00] VITALS: BP 105/80; TEMP 97.9; O2SAT 100
== END 2025-05-02 14:10 | disposition home or self-care (01) | DRG 445 ==
LOC: ER 19:18 → CCU 22:40 → TELE3 04-25 11:15 → MEDSURG3 04-26 09:36
PROVIDERS: ADMIT Nurse Practitioner Family
PROC: 30233N1 Transfusion of Nonautologous Red Blood Cells into Peripheral Vein, Percutaneous Approach (ICD-10-PCS; principal; 2025-04-24)
PROC: 0TBB8ZX Excision of Bladder, Via Natural or Artificial Opening Endoscopic, Diagnostic (ICD-10-PCS; 2025-04-26)
PROC: 0W3R8ZZ Control Bleeding in Genitourinary Tract, Via Natural or Artificial Opening Endoscopic (ICD-10-PCS; 2025-04-26)
DX: C67.8 Malignant neoplasm of overlapping sites of bladder (principal); D62 Acute posthemorrhagic anemia; E44.0 Moderate protein-calorie malnutrition; C78.02 Secondary malignant neoplasm of left lung; I82.612 Acute embolism and thrombosis of superficial veins of left upper extremity; D61.818 Other pancytopenia; I82.B12 Acute embolism and thrombosis of left subclavian vein; E88.09 Other disorders of plasma-protein metabolism, not elsewhere classified; N20.1 Calculus of ureter; N39.0 Urinary tract infection, site not specified; C85.9A Non-Hodgkin lymphoma, unspecified, in remission; R31.0 Gross hematuria; K42.9 Umbilical hernia without obstruction or gangrene; M47.896 Other spondylosis, lumbar region; G89.4 Chronic pain syndrome; Z79.899 Other long term (current) drug therapy; Z87.442 Personal history of urinary calculi; Z86.718 Personal history of other venous thrombosis and embolism; Z92.21 Personal history of antineoplastic chemotherapy
CPT/HCPCS: 36415; 71101; 71260; 82378; 82746; 82784; 83550; 83615; 83735; 84100; 84155; 84165; 84443; 84484; 85018; 85025; 85730; 86038; 86334; 86430; 86706; 86803; 86850; 86900; 86901; 86920; 87340; 93005; 93307; 93880; A9575; C1758; C1769; G0378; J0690; J1100; J1171; J2250; J2405; J2916; J3010; J3490; J7040; P9016; Q9967

== ENCOUNTER → 2025-06-20 | Emergency (ER) | payer OTHER ==
[~2025-06-20] VITALS: Ht 177.8 cm; Wt 65.8 kg
[~2025-06-20] MED LIST changes: -CEFD300C3 PO; +CEFTRIAXONE /D5W 50ML IVPB **ER PYXIS IV ONE; +CEPH500C2 PO; -DICY10CA13 PO; +HALOPERIDOL LACTATE 5 MG/1 ML VIAL ONE; -HYDR-4209 PO; +HYDROMORPHONE 1 MG/1 ML DISP.SYRIN ONE; +IBUP600T51 PO; +KETOROLAC TROMETHAMINE 15 MG INJ ONE; +LORAZEPAM 2 MG/1 ML VIAL ONE; -METR500T PO; +MORPHINE SULFATE 4 MG/1 ML DISP.SYRIN ONE; +ONDA-243 PO; -ONDA4TAB11 PO; +ONDA4TAB5 PO; +ONDANSETRON 4 MG/2 ML VIAL ONE; +TAMS0.4C PO; +TAMSULOSIN HCL 0.4 MG CAP.SR.24H ONE; +[UNRECOGNIZED DRUG - CODE] PO
[2025-06-20 03:27] LABS: PLATELET COUNT (AUTO) 138 K/uL (152-348); RED BLOOD CELL COUNT(AUTO) 4.57 MIL/uL (4.06-5.63); RED CELL DISTRIBUTION WIDTH 18.9 % (12.1-16.2); WHITE BLOOD COUNT (AUTO) 8.7 K/uL (3.6-10.2)
[2025-06-20] MEDS: MORPHINE SULFATE 4 MG/1 ML DISP.SYRIN IV ONE (03:28)
[2025-06-20 03:32] LABS: CREATININE 1.2 mg/dL (0.6-1.3); SODIUM SERUM 140.0 mmol/L (136-145); UREA NITROGEN, BLOOD 17.0 mg/dL (7-18)
[2025-06-20] MEDS: KETOROLAC TROMETHAMINE 15 MG INJ IVP ONE (03:39)
[2025-06-20] MEDS: IV NORMAL SALINE 500 ML BAG IV ONE ×2 (03:39→04:33)
[2025-06-20] MEDS: ONDANSETRON 4 MG/2 ML VIAL IV ONE ×2 (03:39→05:26)
[2025-06-20] MEDS: HYDROMORPHONE 1 MG/1 ML DISP.SYRIN IV ONE (03:39)
[2025-06-20 03:40] LABS: LACTIC ACID 4.9 mmol/L (0.4-2.0)
[2025-06-20 03:43] LABS: ASPARTATE AMINOTRANSFERASE 32.0 U/L (15-37); TOTAL PROTEIN, SERUM 8.1 g/dL (6.4-8.2)
[2025-06-20] MEDS: TAMSULOSIN HCL 0.4 MG CAP.SR.24H PO STA (04:37)
[2025-06-20] MEDS: HALOPERIDOL LACTATE 5 MG/1 ML VIAL IV ONE (05:20)
[2025-06-20] MEDS: LORAZEPAM 2 MG/1 ML VIAL IV ONE (05:26)
[2025-06-20 11:30] LABS: *BILIRUBIN,URIN NEGATIVE (NEGATIVE); *BLOOD, URINE 3+ (NEGATIVE); *CLARITY,URINE CLEAR (CLEAR); *COLOR,URINE YELLOW (YELLOW); *KETONES,URINE TRACE (NEGATIVE); *PROTEIN,URINE 1+ (NEGATIVE); *UROBILINOGEN,URINE 0.2 E.U./dl (NORMAL); LEUKOCYTE ESTERASE ,URINE NEGATIVE (NEGATIVE); NITRITE, URINE NEGATIVE (NEGATIVE); UGLUCOSE NEGATIVE (NEGATIVE)
[2025-06-20 11:46] LABS: SQUAMOUS EPITHELIAL CELL,UR MODERATE /HPF (NONE SEEN)
[2025-06-20 13:21] VITALS: BP 104/63; O2SAT 96
== END | disposition home or self-care (01) ==
LOC: ER 03:08
DX: R10.A1 Flank pain, right side (principal); N13.2 Hydronephrosis with renal and ureteral calculous obstruction; Z79.899 Other long term (current) drug therapy; Z86.718 Personal history of other venous thrombosis and embolism; Z87.442 Personal history of urinary calculi; Z88.7 Allergy status to serum and vaccine
CPT/HCPCS: 99291; 74176; 96375; 96365; 96361; 80053; 81001; 82248; 83735; 85025; 84145; 86140; 87086; 36415; 96376; 83605 ×2; J1885; J0696; J1630; J2060; J2405 ×2; J1171; J2270; J7040 ×2; A4606; A4663

== ENCOUNTER 2025-07-08 07:37 | Emergency (ER) | payer OTHER ==
[~2025-07-08] VITALS: Ht 177.8 cm; Wt 6.8 kg
[~2025-07-08 07:37] MED LIST changes: -CEFTRIAXONE /D5W 50ML IVPB **ER PYXIS IV ONE; -HALOPERIDOL LACTATE 5 MG/1 ML VIAL ONE; -HYDROMORPHONE 1 MG/1 ML DISP.SYRIN ONE; -KETOROLAC TROMETHAMINE 15 MG INJ ONE; -LORAZEPAM 2 MG/1 ML VIAL ONE; -MORPHINE SULFATE 4 MG/1 ML DISP.SYRIN ONE; -ONDANSETRON 4 MG/2 ML VIAL ONE; -TAMSULOSIN HCL 0.4 MG CAP.SR.24H ONE
[2025-07-08] MEDS ORDERED: ONDANSETRON ODT 4 MG TAB.RAPDIS ONE ×2 (08:37→09:35)
[2025-07-08] MEDS ORDERED: LORAZEPAM 2 MG/1 ML VIAL ONE ×2 (08:37→09:35)
[2025-07-08] MEDS: ONDANSETRON ODT 4 MG TAB.RAPDIS SL ONE ×2 (08:42→09:39)
[2025-07-08] MEDS: LORAZEPAM 2 MG/1 ML VIAL IM ONE ×2 (08:42→09:39)
[2025-07-08 09:46] LABS: PLATELET COUNT (AUTO) 110 K/uL (152-348); RED BLOOD CELL COUNT(AUTO) 4.54 MIL/uL (4.06-5.63); RED CELL DISTRIBUTION WIDTH 18.8 % (12.1-16.2); WHITE BLOOD COUNT (AUTO) 7.2 K/uL (3.6-10.2)
[2025-07-08 09:54] LABS: CREATININE 1.2 mg/dL (0.6-1.3); SODIUM SERUM 146 mmol/L (136-145); UREA NITROGEN, BLOOD 16 mg/dL (7-18)
[2025-07-08 10:00] VITALS: BP 106/93
[2025-07-08 10:00] LABS: ASPARTATE AMINOTRANSFERASE 15 U/L (15-37); TOTAL PROTEIN, SERUM 7.4 g/dL (6.4-8.2)
[2025-07-08 10:54] VITALS: BP 106/93; TEMP 98.4; O2SAT 98
== END 2025-07-08 10:55 | disposition home or self-care (01) ==
LOC: ER 07:56
DX: F41.0 Panic disorder [episodic paroxysmal anxiety] (principal); G89.29 Other chronic pain; Z85.51 Personal history of malignant neoplasm of bladder; Z85.72 Personal history of non-Hodgkin lymphomas; Z86.718 Personal history of other venous thrombosis and embolism; Z87.11 Personal history of peptic ulcer disease; Z87.440 Personal history of urinary (tract) infections; Z87.442 Personal history of urinary calculi; Z88.7 Allergy status to serum and vaccine; Z92.21 Personal history of antineoplastic chemotherapy; R06.02 Shortness of breath; Z79.899 Other long term (current) drug therapy
CPT/HCPCS: 99284; 80076; 80048; 83690; 85025; 85730; 84484; 36415; 96372 ×2; J2060 ×2; A4606; A4663; Q0162